=== PATIENT | male | born 1955 | race Caucasian/White ===

== ENCOUNTER 2018-09-18 17:48 | Inpatient (IN) | payer MEDICARE ==
[~2018-09-18] VITALS: Ht 162.6 cm; Wt 66.0 kg
[~2018-09-18 17:48] MED LIST: AMLODIPINE BESYL5 MG PO; CARAFATE1 GM PO; FLAGYL500 MG PO; LEVAQUIN500 MG PO; NEXIUM; PROTONIX40 MG PO; SENNA-S TABLET1 EA PO; SUCRALFATE1 GM PO; Z.0.LISINOPRIL20 MG PO
--- OUTSIDE RECORDS SUMMARY | 2018-09-18 17:52 | XMS REPORT | Continuity of Care Document ---
Author Author [facility] Interface Address Unknown Phone Unavailable Problems Problem Status Onset Date Classification Date Reported Comments Source 1 YEAR FOLLOW UP Active 03/22/2018 [facility] POST OP/ RENAL STONES Active 06/01/2017 [facility] NEUROGENIC BLADDER Active 04/04/2017 [facility] NEUORGENIC BLADDER Active 04/04/2017 [facility] F/U Active 11/29/2016 [facility] SCI FU Active 03/04/2016 [facility] PT STATED HAD SURG AND DOC SAID COME LUCERO Active 03/12/2014 [facility] NGB Active 02/06/[address] [facility] [address] EVAL Active 09/05/2000 [facility] KIDNEY STONES Active 11/24/1989 [facility] RENAL STONE Active 11/24/1977 [facility] ANNUAL F/U Active 11/24/1977 [facility] NEUROGENIC BLADDER/RENAL CALCULI Active 11/24/1977 [facility] NEUROGENIC BLADDER/RENAL STONES Active 11/24/1977 [facility] Neurogenic bladder Active Problem 02/23/2013 [facility] Neurogenic bladder Active Problem 03/25/2018 [facility] Neurogenic bowel Active Problem 03/25/2018 [facility] SCI - Spinal cord injury Active Problem 03/25/2018 [facility] Spasticity Active Problem 09/05/2017 [facility] Medications Medication Details Route Status Patient Instructions Ordering Provider Order Date Source Esomeprazole 40 MG Enteric Coated Capsule [Nexium] 40 mg=1 cap, PO, Daily, Workers [employer], # 90 cap, 3 Refill(s), Pharmacy: [facility] Active 04/04/2017 [facility] sucralfate 1 g oral tablet 1 gm=1 tab, PO, QID, # 120 tab, 0 Refill(s) Active 04/04/2017 [facility] Esomeprazole 40 MG Enteric Coated Capsule [Nexium] 40 mg=1 cap, PO, Daily, # 90 cap, 1 Refill(s), Pharmacy: [facility] No Longer Active 12/13/2016 [facility] Esomeprazole 40 MG Enteric Coated Capsule [Nexium] 40 mg=1 cap, PO, Daily, # 90 cap, 0 Refill(s), Pharmacy: [facility] Active 03/09/2016 [facility] Esomeprazole 40 MG Enteric Coated Capsule [Nexium] 40 mg=1 cap, PO, Daily, # 90 cap, 3 Refill(s) Active 03/11/2015 [facility] Esomeprazole 40 MG Enteric Coated Capsule [Nexium] 40 mg=1 cap, PO, Daily, # 30 cap, 0 Refill(s) Inactive 03/11/2015 [facility] Esomeprazole 40 MG Enteric Coated Capsule [Nexium] 40 mg=1 cap, PO, Daily, # 90 cap, 4 Refill(s) Active 03/12/2014 [facility] Ascorbic Acid / Biotin / Folic Acid / Niacin / pantothenate / pyridoxine / Riboflavin / Thiamine / Vitamin B 12 0 Refill(s) Active 03/12/2014 [facility] Allergies, Adverse Reactions, Alerts Substance Category Reaction Severity Reaction type Status Date Reported Comments Source Levaquin Assertion Drug allergy Active [facility] Immunizations Immunization Date Given Site Status Last Updated Comments Source Results Order Name Results Value Reference Range Date Interpretation Comments Source CHEM PANEL eGFR 100 mL/min/1.73m2 03/22/2018 Result Comment: The eGFR is calculated using the CKD-EPI formula. In most young, healthy individuals the eGFR will be >90 mL/min/1.73m2. The eGFR declines with age. An eGFR of 60-89 may be normal in some populations, particularly the elderly, for whom the CKD-EPI formula has not been extensively validated. Use of the eGFR is not recommended in the following populations: Individuals with unstable creatinine concentrations, including patients and those with serious co-morbid conditions. Patients with extremes in muscle mass or diet. The data above are obtained from the National Kidney Disease Education Program (NKDEP) which additionally recommends that when the eGFR is used in patients with extremes of body mass index for purposes of drug dosing, the eGFR should be multiplied by the estimated BMI. [facility] CHEM PANEL Creatinine Lvl 0.75 mg/dL 0.50 - 1.40 03/22/2018 [facility] Abdomen AP DX Abdomen AP DX 1 VIEW ABDOMEN INDICATION: Kidney stones. COMPARISON: 09/02/2017 KUB. Moderately large amount of colonic stool stable from August of last year. Very little rectal stool. Bowel gas pattern otherwise normal. Soft tissues normal. Chronic displaced subcapital fracture right hip stable from August of last year. Soft tissues normal. No radiopaque urinary stones identified however a large amount of stool projects over both kidneys. Lung bases clear. IMPRESSION: Moderately large amount of colonic stool. Chronic displaced right hip fracture.. END IMPRESSION SL: [id number] 03/15/2018 - - Read by: Sergei Bautista MD Dictated Date/time: 03/15/18 13:19 Electronically Signed by: Sergei Bautista MD 03/15/18 13:21 FINAL REPORT [facility] Retroperitoneal Complete US Retroperitoneal Complete US PROCEDURE: RENAL ULTRASOUND INDICATION: Kidneys stones. Neurogenic bladder. COMPARISON: 03/16/2017 renal ultrasound. Today's KUB. TECHNIQUE: Sonographic evaluation of the kidneys and urinary bladder was performed. FINDINGS: KIDNEYS: The right kidney measures 7.8 cm in length. Renal cortical scarring versus lobulated kidney seen. Mild hydronephrosis once again seen. 8 to 9 mm shadowing echogenic foci at the lower pole visualized. Mid pole anechoic avascular lesion measures 1.2 x 0.8 x 1 cm. The left kidney measures 10.7 cm in length. Pelviectasis present without overt hydronephrosis or cortical thinning. 6 to 7 mm shadowing echogenic focus of lower pole seen BLADDER: Bladder is not visualized. Small portion of the abdominal aorta is visualized. Aortic bifurcation into the common iliac arteries is obscured. Intrahepatic inferior vena cava is partially visualized. IMPRESSION: 1. Mild right hydronephrosis and left renal pelviectasis. 2. Bilateral nephrolithiasis. 3. Right renal cyst. SL: [id number] 03/15/2018 - - Read by: Ottoniel South MD Dictated Date/time: 03/15/18 13:06 Electronically Signed by: Ottoniel South MD 03/15/18 13:14 FINAL REPORT [facility] Abdomen AP DX Abdomen AP DX 1 VIEW ABDOMEN INDICATION: Renal stone. COMPARISON: 06/06/2017 KUB large amount of bowel content and bowel gas obscures both kidneys.. Large amount of bowel content and bowel gas obscures both kidneys. There is a 6 mm calcification projecting over the right kidney stable from prior exams. Bones otherwise intact. Lung bases clear.. IMPRESSION: Stable 6 mm right renal stone. Chronic right hip fracture. END IMPRESSION SL: [id number] 09/02/2017 - - Read by: Sergei Bautista MD Dictated Date/time: 09/02/17 12:52 Electronically Signed by: Sergei Bautista MD 09/02/17 12:54 FINAL REPORT [facility] Abdomen AP DX Abdomen AP DX Abdomen one view: HISTORY: Renal stones. FINDINGS: There is a moderate stool burden in the right side of the colon. There are 2 punctate calcific densities over the right kidney, largest 6 mm. Suture material is also noted in the right flank region. No definite left-sided kidney stone. 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 IMPRESSION: Right nephrolithiasis SL: [id number] 06/06/2017 - - Read by: Gerald Ashton MD Dictated Date/time: 06/06/17 11:08 Electronically Signed by: Gerald Ashton MD 06/06/17 11:10 FINAL REPORT [facility] Retroperitoneal Complete US Retroperitoneal Complete US PROCEDURE: RENAL ULTRASOUND INDICATION: Neurogenic bladder. Renal stones. COMPARISON: 03/22/2016 renal ultrasound. 03/15/2008 CT abdomen pelvis. TECHNIQUE: Sonographic evaluation of the kidneys and urinary bladder was performed. FINDINGS: KIDNEYS: The right kidney measures 7.8 cm in length. Mild hydronephrosis is present. Mild cortical thinning suspected. Cortical anechoic avascular cyst appears bilobed or septated measuring 1.4 x 1 x 1 cm. 1 cm shadowing echogenic focus there is seen in the mid to lower pole. 0.8 cm shadowing echogenic focus seen in the mid to upper pole. The left kidney measures 10.5 cm in length. Moderate pelviectasis or mild hydronephrosis is present. No significant cortical thinning. BLADDER: Not visualized. IMPRESSION: 1. Mild right hydronephrosis with mild cortical thinning. 2. Very mild left hydronephrosis. No significant cortical thinning. 3. Right nephrolithiasis. 4. Bilobed or septated right renal cyst. SL: [id number] 03/16/2017 - - Read by: Ottoniel South MD Dictated Date/time: 03/16/17 11:49 Electronically Signed by: Ottoniel South MD 03/16/17 12:47 FINAL REPORT [facility] Abdomen AP DX Abdomen AP DX PROCEDURE: Supine abdomen radiograph one view on 03/16/2017 at 1117 hours. INDICATION: Neurogenic bladder. Renal calculi COMPARISON: Renal ultrasound dated 03/16/2017. Abdomen radiograph dated 03/22/2016. CT abdomen and pelvis without contrast dated 03/15/2008. FINDINGS: Multiple calcifications overlie the upper and lower pole right kidney. Largest calcifications overlie the lower pole right kidney and measure up to 12 mm. Calcifications overlying the upper pole right kidney measure up to 6 mm. Smaller densities overlie the lower pole left kidney measuring up to 3 mm. Prominent bowel gas obscures visualization. Large volume fecal material in the colon. No bowel dilatation or transition. No solid organomegaly or masses. Chronic displaced right subcapital femoral neck fracture is again demonstrated. Bone density is decreased with mild to moderate degenerative changes in the spine, pelvis. IMPRESSION: 1. Bilateral nephrolithiasis, larger and more numerous on the right side. 2. Findings suggesting constipation. SL: [id number] 03/16/2017 - - Read by: Jimmy Bateman MD Dictated Date/time: 03/16/17 12:12 Electronically Signed by: Jimmy Bateman MD 03/16/17 12:20 FINAL REPORT [facility] Abdomen AP DX Abdomen AP DX EXAM: XR ABDOMEN 1 FRONTAL VIEW DATE: 03/22/2016 11:00 AM CDT INDICATION: NEUROGENIC BLADDER ADDITIONAL INFORMATION: None. COMPARISON: KU 01/30/2015 TECHNIQUE: Single frontal view of the abdomen. FINDINGS: Lines and tubes: Tube projects over the right upper quadrant. Scattered surgical clips projecting over the lower hemipelvis. Lower thorax: Unremarkable where visualized. Bowel: Nonobstructive bowel gas pattern. Moderately large stool burden. Solid organs: No abnormal mass or organomegaly seen. Calcifications: No abnormal calcifications found. Bones: Normal. IMPRESSION: 1. Nonobstructive bowel gas pattern. 2. Moderately large stool burden. 03/22/2016 - - Read by: Ottoniel Jimenes MD Dictated Date/time: 03/22/16 10:46 Electronically Signed by: Ottoniel Jimenes MD 03/22/16 10:48 FINAL REPORT [facility] Retroperitoneal Complete US Retroperitoneal Complete US EXAM: US RETROPERITONEUM DATE: 03/24/2016 11:00 AM CDT INDICATION: NEUROGENIC BLADDER ADDITIONAL INFORMATION: None. COMPARISON: Renal ultrasound 01/30/2015 TECHNIQUE: Multiplanar grayscale and color Doppler ultrasound of the kidneys and urinary bladder. FINDINGS: Right kidney: Hydronephrosis: None. Size: 7.8 cm. Atrophic. Echogenicity: Normal. Calculi: A subcentimeter 0.7 x 0.6 x 0.5 cm interpolar cyst. Cysts: A 0.8 x 0.4 x 0.7 cm and a 0.6 x 0.4 x 0.5 cm echogenic focus within the inferior pole Masses: None. Left kidney: Hydronephrosis: None. Size: 10.2 cm. Echogenicity: Normal. Calculi: None. Cysts: None. Masses: None. Status post urostomy. IMPRESSION: 1. Unchanged atrophic right kidney. 2. Persistent nonobstructive right inferior pole renal stones. 3. Right interpolar cyst. 4. No left renal stones. 03/22/2016 - - Read by: Ottoniel Jimenes MD Dictated Date/time: 03/22/16 11:09 Electronically Signed by: Ottoniel Jimenes MD 03/22/16 11:16 FINAL REPORT [facility] Abdomen AP DX Abdomen AP DX EXAM: XR ABDOMEN 1 VIEW DATE: 01/30/2015 at 1017 hours. INDICATION: Neurogenic bladder. ADDITIONAL INFORMATION: None. COMPARISON: None. TECHNIQUE: Two frontal radiographs provided for interpretation. DISCUSSION: Lower thorax is unremarkable where visualized. Tube overlies the left abdomen. The bowel gas pattern is nonobstructive. Moderate amount of stool is identified in the colon. No abnormal mass or organomegaly seen. No suspicious calcifications found. No worrisome skeletal abnormalities. IMPRESSION: 1. No abdominal abnormalities. Interpreted by Lex Sim MD. 01/30/2015 - - Read by: Lex Sim MD Dictated Date/time: 01/30/15 10:57 Electronically Signed by: Lex Sim MD 01/30/15 10:58 FINAL REPORT [facility] Retroperitoneal Complete US Retroperitoneal Complete US EXAM: US RENAL DATE: 01/30/2015 at 1010 hours. INDICATION: Neurogenic bladder. ADDITIONAL INFORMATION: Urostomy. COMPARISON: None. TECHNIQUE: Multiplanar grayscale and color Doppler ultrasound images of the kidneys and urinary bladder were obtained. FINDINGS: Right kidney is again noted to be atrophic. Right kidney is 7.7 x 3.1 x 3.0 cm and left is 10.3 x 5.1 x 4.5 cm. Subcentimeter right nonobstructing renal calculi are also noted, measuring 0.9 x 0.7 x 0.4 cm inferiorly and 0.6 x 0.5 x 0.4 cm in the mid right kidney. Mild bilateral pelviectasis is unchanged. The patient is status post urostomy. IMPRESSION: 1. Unchanged atrophy of the right kidney. 2. Unchanged right nonobstructing nephrolithiasis. 3. Unchanged mild bilateral pelviectasis. Interpreted by Lex Sim MD. 01/30/2015 - - Read by: Lex Sim MD Dictated Date/time: 01/30/15 10:45 Electronically Signed by: Lxe Sim MD 01/30/15 10:56 FINAL REPORT [facility] Retroperitoneal Complete US Retroperitoneal Complete US EXAM: RETROPERITONEAL ULTRASOUND DATE: January 10, 2014 INDICATION: Neurogenic bladder COMPARISON: February 15, 2013 DISCUSSION: Transverse and sagittal images of the kidneys were obtained Again noted is a small right kidney with renal parenchymal thinning and cortical scarring. The right kidney measures 7.4 x 3.5 x 4.0 cm. A 7 mm calculus is present in the inferior pole of the right kidney. A 5 x 8 mm calculus is present in the inferior pole of the right kidney with a smaller 3-4 mm calculus in the interpolar kidney. Pelviectasis is present. The left kidney measures 10.3 x 4.8 x 4.4 cm. The left kidney has a normal parenchymal appearance with pelviectasis noted. No echogenic calculus is seen in the left kidney. The bladder is not visualized. A urostomy tube is is present. No free fluid is seen in the pelvis. IMPRESSION: 1. Small right kidney with cortical scarring. 2. Approximately 3 right renal calculi are seen, largest at 8 mm. 3. Pelviectasis of the kidneys bilaterally. Dictated by staff: Dr. Lewis 01/10/2014 - - Read by: Suzie Lewis MD Dictated Date/time: 01/10/14 12:49 Electronically Signed by: Suzie Lewis MD 01/10/14 15:53 FINAL REPORT [facility] Abdomen AP view Abdomen AP view EXAM: XR ABDOMEN 1 VIEW DATE: 01/10/14. INDICATION: Neurogenic bladder. COMPARISON: February 15, 2013. TECHNIQUE: Two radiographs provided for interpretation. FINDINGS: Lower thorax is unremarkable where visualized. Gaseous distention of small large bowel loops is seen with a mild to moderate fecal burden.. Surgical sutures are noted in the right midabdomen.. At least 2 calcifications are seen overlying the right renal silhouette, largest measuring 7 - 8 mm.. No left renal calculus is seen. Fracture of the right femoral neck with subluxation of the distal aspect is unchanged. The bones are osteopenic.. IMPRESSION: 1. At least 2 subcentimeter right renal calculi are identified. Interpreted by Suzie Lewis MD. 01/10/2014 - - Read by: Suzie Lewis MD Dictated Date/time: 01/10/14 10:33 Electronically Signed by: Suzie Lewis MD 01/10/14 13:01 FINAL REPORT [facility] Vital Signs Vital Sign Value Date Comments Source Heart Rate 65 03/22/2018 [facility] Respitory Rate 18 03/22/2018 [facility] Systolic (mm Hg) 132 03/22/2018 [facility] Diastolic (mm Hg) 85 03/22/2018 [facility] Weight 45.455 03/22/2018 [facility] BMI Calculated 15.82 05/11/2017 [facility] Height 162.56 cm 05/11/2017 [facility] Weight 41.818 05/11/2017 [facility] Systolic (mm Hg) 123 05/11/2017 [facility] Diastolic (mm Hg) 83 05/11/2017 [facility] BMI Calculated 18.06 04/04/2017 [facility] Weight 47.727 04/04/2017 [facility] Height 162.56 cm 04/04/2017 [facility] Systolic (mm Hg) 135 04/04/2017 [facility] Diastolic (mm Hg) 85 04/04/2017 [facility] Heart Rate 111 04/04/2017 [facility] Respitory Rate 18 04/04/2017 [facility] Weight 46.364 04/04/2017 [facility] Height 162.56 cm 04/04/2017 [facility] BMI Calculated 17.55 04/04/2017 [facility] Respitory Rate 20 04/04/2017 [facility] Heart Rate 65 04/04/2017 [facility] Systolic (mm Hg) 135 04/04/2017 [facility] Diastolic (mm Hg) 87 04/04/2017 [facility] Systolic (mm Hg) 108 04/12/2016 [facility] Diastolic (mm Hg) 74 04/12/2016 [facility] Weight 46.364 04/12/2016 [facility] BMI Calculated 17.55 04/12/2016 [facility] Height 162.56 cm 04/12/2016 [facility] Heart Rate 102 04/12/2016 [facility] Respitory Rate 18 04/12/2016 [facility] Height 162.56 cm 03/29/2016 [facility] BMI Calculated 20.81 03/29/2016 [facility] Weight 55 03/29/2016 [facility] Respitory Rate 18 03/29/2016 [facility] Systolic (mm Hg) 75 03/29/2016 [facility] Diastolic (mm Hg) 45 03/29/2016 [facility] Heart Rate 90 03/29/2016 [facility] BMI Calculated 22.72 03/11/2015 [facility] Weight 54.545 03/11/2015 [facility] Height 154.94 cm 03/11/2015 [facility] Systolic (mm Hg) 132 03/11/2015 [facility] Diastolic (mm Hg) 76 03/11/2015 [facility] Respitory Rate 16 02/05/2015 [facility] Heart Rate 62 02/05/2015 [facility] Systolic (mm Hg) 100 02/05/2015 [facility] Diastolic (mm Hg) 68 02/05/2015 [facility] Respitory Rate 20 04/24/2014 [facility] Systolic (mm Hg) 113 04/24/2014 [facility] Diastolic (mm Hg) 86 04/24/2014 [facility] BMI Calculated 20.81 04/24/2014 [facility] Weight 55 04/24/2014 [facility] Height 162.56 cm 04/24/2014 [facility] Heart Rate 62 04/24/2014 [facility] Diastolic (mm Hg) 81 03/12/2014 [facility] Systolic (mm Hg) 114 03/12/2014 [facility] Respitory Rate 18 03/12/2014 [facility] Heart Rate 69 03/12/2014 [facility] Weight 55 03/12/2014 [facility] BMI Calculated 20.81 03/12/2014 [facility] Height 162.56 cm 03/12/2014 [facility] Heart Rate 57 02/06/2014 [facility] Respitory Rate 18 02/06/2014 [facility] Systolic (mm Hg) 147 02/06/2014 [facility] Diastolic (mm Hg) 87 02/06/2014 [facility] Weight 54.545 02/06/2014 [facility] BMI Calculated 20.64 02/06/2014 [facility] Height 162.56 cm 02/06/2014 [facility] Height 162.56 cm 02/21/2013 [facility] Weight 55 02/21/2013 [facility] Heart Rate 70 02/21/2013 [facility] Systolic (mm Hg) 127 02/21/2013 [facility] Respitory Rate 16 02/21/2013 [facility] Diastolic (mm Hg) 85 02/21/2013 [facility] Encounters Location Location Details Encounter Type Encounter Number Reason For Visit Attending Provider ADM Date DC Date Status Source Outpatient [id number] NEUROGENIC BLADDER ANGI ESPINO JR 02/21/2013 Active [facility] Outpatient [id number] Angi Espino Jr 01/10/2014 01/11/2014 [facility] Outpatient [id number] Angi Espino Jr 02/06/2014 02/07/2014 [facility] [place] [id number] [facility]/12[facility]2014 03/13/2014 [facility] [id number] Angi Espino Jr 04/16/2014 04/17/2014 [facility] Outpatient [id number] Angi Espino Jr 04/24/2014 04/25/2014 [facility] [place] Outpatient [id number] Angi Espino Jr 02/05/2015 02/06/2015 [facility] [id number] [facility] 03/11/2015 03/12/2015 [facility] Outpatient [id number] Angi Espino Jr 03/22/2016 03/23/2016 [facility] Outpatient [id number] Angi Espino Jr 03/29/2016 03/30/2016 [facility] Outpatient [id number] [facility] 04/12/2016 04/13/2016 [facility] Outpatient [id number] Angi Espino Jr 03/16/2017 03/17/2017 [facility] Outpatient [id number] Sy Frontera 04/04/2017 04/05/2017 [id number] Sy Frontera 05/11/2017 06/10/2017 [facility] Outpatient [id number] Angi Espino Jr 06/06/2017 06/07/2017 [facility] Outpatient [id number] Angi Espino Jr 09/02/2017 09/03/2017 [facility] Outpatient [id number] Angi Espino Jr 03/15/2018 03/16/2018 [facility] Outpatient [id number] Angi Espino Jr 03/22/2018 03/23/2018 [facility] Outpatient [id number] F/U DAYSI ZUNIGA Active [facility] Procedures Procedure Code Date Perfomer Comments Source Lithotripsy 602027433 03/07/2014 [facility] Lithotripsy of kidney [id number] 03/07/2014 [facility] Procedure <sup>1</sup> [id number] 1removal of stone [facility] Procedure<sup>1</sup> [id number] removal of stone [facility] Surgery<sup>2</sup> [id number] ileovesicostomy [facility]
--- OUTSIDE RECORDS SUMMARY | 2018-09-18 17:52 | XMS REPORT | Summary of Care ---
Author Organization Unknown Address Unknown Phone Unavailable Encounter [facility](ANISH) [id number] Date(s): 04/24/14 - 04/24/[address] [address] [facility] [phone] Discharge Disposition: Home Physician Attending: Dwayne Bernal MD Physician_Referring: Dwayne Bernal MD Reason for Visit PT STATED HAD SURG AND DOC SAID COME BACK 6-12 WKS Vital Signs Most recent to 1 oldest [Reference Range]: Height 162.56 cm (04/24/14 10:05 AM) Systolic Blood 113 mmHg Pressure [90-140 (04/24/14 10:05 AM) mmHg] Diastolic Blood 86 mmHg Pressure [60-90 (04/24/14 10:05 AM) mmHg] Respiratory Rate 20 BRMIN [14-20 BRMIN] (04/24/14 10:05 AM) Peripheral Pulse 62 bpm Rate [60-100 bpm] (04/24/14 10:05 AM) Weight 55 kg (04/24/14 10:05 AM) Body Mass Index 20.81 m2 (04/24/14 10:05 AM) Problem List Condition Effective Dates Status Health Status Informant Neurogenic Active bladder(Confirmed) Neurogenic Active bowel(Confirmed) SCI - Spinal cord Active injury(Confirmed) Spasticity(Confirmed Active ) Allergies, Adverse Reactions, Alerts Substance Reaction Severity Status Levaquin Active Medications No data available for this section Medications Administered During Your Visit No data available for this section Immunizations No data available for this section Procedures Procedure Type Body Site Date of Procedure Related Diagnosis Lithotripsy of kidney 03/07/14 12:00 AM Social History Social History Type Response Smoking Status Never smoker, Exposure to Tobacco Smoke None, Cigarette Smoking Last 365 Days No, Reg Smoking Cessation Counseling No
--- OUTSIDE RECORDS SUMMARY | 2018-09-18 17:52 | XMS REPORT | Summary of Care ---
Author Organization Unknown Address Unknown Phone Unavailable Encounter [facility](ANISH) [id number] Date(s): 03/12/14 - 03/12/[address] [address] [facility] [phone] Discharge Disposition: Home Physician Attending: Sy Esposito MD Physician_Referring: Bari Ryder MD Reason for Visit F/U Vital Signs Most recent to 1 oldest [Reference Range]: Height 162.56 cm (03/12/14 9:56 AM) Systolic Blood 114 mmHg Pressure [90-140 (03/12/14 9:56 AM) mmHg] Diastolic Blood 81 mmHg Pressure [60-90 (03/12/14 9:56 AM) mmHg] Respiratory Rate 18 BRMIN [14-20 BRMIN] (03/12/14 9:56 AM) Peripheral Pulse 69 bpm Rate [60-100 bpm] (03/12/14 9:56 AM) Weight 55 kg (03/12/14 9:56 AM) Body Mass Index 20.81 m2 (03/12/14 9:56 AM) Problem List Condition Effective Dates Status Health Status Informant Neurogenic Active bladder(Confirmed) Neurogenic Active bowel(Confirmed) SCI - Spinal cord Active injury(Confirmed) Spasticity(Confirmed Active ) Allergies, Adverse Reactions, Alerts Substance Reaction Severity Status Levaquin Active Medications multivitamin 0 Refill(s) Start Date: 03/12/14 Status: Ordered NexIUM 40 mg oral delayed release capsule 40 mg=1 cap, PO, Daily, # 90 cap, 4 Refill(s) Start Date: 03/12/14 Status: Ordered Medications Administered During Your Visit No data available for this section Immunizations No data available for this section Procedures Procedure Type Body Site Date of Procedure Related Diagnosis Lithotripsy 03/07/14 12:00 AM Social History Social History Type Response Smoking Status Never smoker, Exposure to Tobacco Smoke None, Cigarette Smoking Last 365 Days No, Reg Smoking Cessation Counseling No
--- OUTSIDE RECORDS SUMMARY | 2018-09-18 17:52 | XMS REPORT | Summary of Care ---
Author Organization Unknown Address Unknown Phone Unavailable Encounter HQ Tye_bryn(ANISH) [id number] Date(s): 02/06/14 - 02/06/[address] [address] [facility] Discharge Disposition: Home Physician Attending: Dwayne Bernal MD Physician_Referring: Dwayne Bernal MD Reason for Visit NEUROGENIC BLADDER Vital Signs Most recent to 1 oldest [Reference Range]: Height 162.56 cm (02/06/14 10:15 AM) Systolic Blood 147 mmHg Pressure [90-140 *HI* mmHg] (02/06/14 10:15 AM) Diastolic Blood 87 mmHg Pressure [60-90 (02/06/14 10:15 AM) mmHg] Respiratory Rate 18 BRMIN [14-20 BRMIN] (02/06/14 10:15 AM) Peripheral Pulse 57 bpm Rate [60-100 bpm] *LOW* (02/06/14 10:15 AM) Weight 54.545 kg (02/06/14 10:15 AM) Body Mass Index 20.64 m2 (02/06/14 10:15 AM) Problem List Condition Effective Dates Status Health Status Informant Neurogenic Active bladder(Confirmed) Neurogenic Active bowel(Confirmed) SCI - Spinal cord Active injury(Confirmed) Spasticity(Confirmed Active ) Allergies, Adverse Reactions, Alerts Substance Reaction Severity Status Levaquin Active Medications No data available for this section Medications Administered During Your Visit No data available for this section Immunizations No data available for this section Social History Social History Type Response Smoking Status Former smoker, Exposure to Tobacco Smoke None, Cigarette Smoking Last 365 Days No, Reg Smoking Cessation Counseling No
--- OUTSIDE RECORDS SUMMARY | 2018-09-18 17:52 | XMS REPORT | Summary of Care ---
Author Organization Unknown Address Unknown Phone Unavailable Encounter HQ Encntr_bryn(ANISH) [id number] Date(s): 01/10/14 - 01/10/14 [place] [id number] [place] [address] Discharge Disposition: Home Physician Attending: Dwayne Bernal MD Physician_Referring: Dwayne Bernal MD Reason for Visit NEUROGENIC BLADDER Problem List Condition Effective Dates Status Health [...]
--- OUTSIDE RECORDS SUMMARY | 2018-09-18 17:52 | XMS REPORT | Summary of Care ---
Author Organization Unknown Address Unknown Phone Unavailable Encounter HQ Tye_bryn(ANISH) [id number] Date(s): 04/16/14 - 04/16/14 [place] [id number] Discharge Disposition: Home Physician Attending: Dwayne Bernal MD Physician_Referring: Dwayne Bernal MD Reason for Visit RENAL STONE Problem List Condition Effective Dates Status Health [...]
--- OUTSIDE RECORDS SUMMARY | 2018-09-18 17:52 | XMS REPORT | CCD ---
Author Author Auto Generated Organization [facility] Address Unknown Phone Unavailable Care Team Providers Care Check Grader Name Role Phone Dwayne Florez Jr RP Allergies, Adverse Reactions, Alerts Substance Reaction Status Levaquin Active Problem List Condition Effective Dates Status Neurogenic bladder Active Vital Signs Most recent to oldest [Reference Range]: 1 Height 162.56 cm (02/21/2013 09:53:00) Systolic Blood Pressure [90-140 mmHg] 127 mmHg (02/21/2013 09:53:00) Diastolic Blood Pressure [60-90 mmHg] 85 mmHg (02/21/2013 09:53:00) Respiratory Rate [14-20 BRMIN] 16 BRMIN (02/21/2013 09:53:00) Peripheral Pulse Rate [60-100 bpm] 70 bpm (02/21/2013 09:53:00) Weight 55 kg (02/21/2013 09:53:00) Procedures Procedures Date Related Diagnosis Procedure 1 1removal of stone
--- OUTSIDE RECORDS SUMMARY | 2018-09-18 17:53 | XMS REPORT | Summary of Care ---
Author Author [facility] Address Unknown Phone Unavailable Encounter HQ Jassi(ANISH) [id number] Date(s): 03/22/16 - 03/22/16 [facility] [address] [place], [place] [address] Discharge Disposition: Home or Self Care Attending Physician: Dwayne Bernal MD Referring Physician: Sy Esposito MD Vital Signs No data available for this section Problem List Condition Effective Dates Status Health Status Informant Neurogenic Active bladder(Confirmed) Neurogenic Active bowel(Confirmed) SCI - Spinal cord Active injury(Confirmed) Spasticity(Confirmed Active ) Allergies, Adverse Reactions, Alerts Substance Reaction Severity Status Levaquin Active Medications No data available for this section Results No data available for this section Immunizations No data available for this section Procedures Procedure Date Related Diagnosis Body Site Lithotripsy 03/07/14 Lithotripsy of kidney 03/07/14 Procedure1 1removal of stone Social History Social History Type Response Smoking Status Never smoker; Exposure to Tobacco Smoke None; Cigarette Smoking Last 365 Days No; Reg Smoking Cessation Counseling No Assessment and Plan No data available for this section
--- OUTSIDE RECORDS SUMMARY | 2018-09-18 17:53 | XMS REPORT | Summary of Care ---
Author Author [facility] Address Unknown Phone Unavailable Encounter CATIE Keene(ANISH) [id number] Date(s): 03/29/16 - 03/29/16 [place] [address] [place], [place] [address] Discharge Disposition: Home or Self Care Attending Physician: Dwayne Bernal MD Referring Physician: Dwayne Bernal MD Vital Signs Most recent to 1 oldest [Reference Range]: Height 162.56 cm (03/29/16 10:08 AM) Blood Pressure 75/45 mmHg [90-140/60-90 mmHg] *LOW* (03/29/16 10:08 AM) Respiratory Rate 18 BRMIN [14-20 BRMIN] (03/29/16 10:08 AM) Peripheral Pulse 90 bpm Rate [60-100 bpm] (03/29/16 10:08 AM) Weight 55 kg (03/29/16 10:08 AM) Body Mass Index 20.81 m2 (03/29/16 10:08 AM) Problem List Condition Effective Dates Status Health Status Informant Neurogenic Active bladder(Confirmed) Neurogenic Active bowel(Confirmed) SCI - Spinal cord Active injury(Confirmed) Spasticity(Confirmed Active ) Allergies, Adverse Reactions, Alerts Substance Reaction Severity Status Levaquin Active Medications No Known Medications Results No data available for this section [...]
--- OUTSIDE RECORDS SUMMARY | 2018-09-18 17:53 | XMS REPORT | Summary of Care ---
Author Author [facility] Address Unknown Phone Unavailable Encounter CATIE Keene(ANISH) [id number] Date(s): 03/22/18 - 03/22/18 [place] [address] [place], [place] [address] Discharge Disposition: Home or Self Care Attending Physician: Dwayne Bernal MD Referring Physician: Dwayne Bernal MD Vital Signs Most recent to 1 oldest [Reference Range]: Blood Pressure 132/85 mmHg [90-140/60-90 mmHg] (03/22/18 10:34 AM) Respiratory Rate 18 BRMIN [14-20 BRMIN] (03/22/18 10:34 AM) Peripheral Pulse 65 bpm Rate [60-100 bpm] (03/22/18 10:34 AM) Weight 45.455 kg (03/22/18 10:34 AM) Problem List Condition Effective Dates Status Health Status Informant Neurogenic Active bladder(Confirmed) Neurogenic Active bowel(Confirmed) SCI - Spinal cord Active injury(Confirmed) Allergies, Adverse Reactions, Alerts Substance Reaction Severity Status Levaquin Active Medications No Known Medications Results CHEM PANEL Most recent to 1 oldest [Reference Range]: Creatinine Lvl 0.75 mg/dL [0.50-1.40 mg/dL] (03/22/18 12:10 PM) eGFR 100 mL/min/1.73m2 1 *NA* (03/22/18 12:10 PM) 1Result Comment: The eGFR is calculated using the [...] from the National Kidney Disease Education Program ( NKDEP) which additionally recommends that when the eGFR is used in patients with extremes of body mass index for purposes of drug dosing, the eGFR should be mul tiplied by the estimated BMI. Immunizations No data available for this section Procedures Procedure Date Related Diagnosis Body Site Status Lithotripsy 03/07/14 Completed Lithotripsy of kidney 03/07/14 Completed Procedure1 Completed Surgery2 Completed 1removal of stone 2ileovesicostomy Social History Social History Type Response Smoking Status Never smoker; Ready to change: No; Concerns about tobacco use in household: No; Exposure to Tobacco Smoke None; Cigarette Smoking Last 365 Days No; Reg Smoking Cessation Counseling No entered on: 03/22/18 Assessment and Plan No data available for this section
--- OUTSIDE RECORDS SUMMARY | 2018-09-18 17:53 | XMS REPORT | Summary of Care ---
Author Author [facility] Address Unknown Phone Unavailable Encounter CATIE Keene(ANISH) [id number] Date(s): 06/06/17 - 06/06/17 [facility] [address] [place], [place] [address] Discharge Disposition: Home or Self Care Attending Physician: Dwayne Bernal MD Referring Physician: Dwayne Bernal MD Vital Signs No data available for [...] Lithotripsy 03/07/14 Lithotripsy of kidney 03/07/14 Procedure1 Surgery2 1removal of stone 2ileovesicostomy Social History Social History Type Response Smoking Status Never smoker; Ready to change: No; Concerns about tobacco use in household: No; Exposure to Tobacco Smoke None; Cigarette Smoking Last 365 Days No; Reg Smoking Cessation Counseling No Assessment and Plan No data available for this section
--- OUTSIDE RECORDS SUMMARY | 2018-09-18 17:53 | XMS REPORT | Summary of Care ---
Author Organization Unknown Address Unknown Phone Unavailable Encounter HQ Jassi(ANISH) [id number] Date(s): 03/11/15 - 03/11/[address] Discharge Disposition: Home Physician Attending: Sy Esposito MD Physician_Referring: Sy Esposito MD Vital Signs Most recent to 1 oldest [Reference Range]: Height 154.94 cm (03/11/15 10:17 AM) Blood Pressure 132/76 mmHg [90-140/60-90 mmHg] (03/11/15 10:17 AM) Weight 54.545 kg (03/11/15 10:17 AM) Body Mass Index 22.72 m2 (03/11/15 10:17 AM) Problem List Condition Effective Dates Status Health Status Informant Neurogenic Active bladder(Confirmed) Neurogenic Active bowel(Confirmed) SCI - Spinal cord Active injury(Confirmed) Spasticity(Confirmed Active ) Allergies, Adverse Reactions, Alerts Substance Reaction Severity Status Levaquin Active Medications NexIUM 40 mg oral delayed release capsule 40 mg=1 cap, PO, Daily, # 30 cap, 0 Refill(s) Start Date: 03/11/15 Stop Date: 03/11/15 Status: Discontinued NexIUM 40 mg oral delayed release capsule 40 mg=1 cap, PO, Daily, # 90 cap, 3 Refill(s) Start Date: 03/11/15 Status: Ordered Results No data available for this section [...]
--- OUTSIDE RECORDS SUMMARY | 2018-09-18 17:53 | XMS REPORT | Summary of Care ---
Author Author [facility] Address Unknown Phone Unavailable Encounter HQ Jassi(ANISH) [id number] Date(s): 09/02/17 - 09/02/17 [place] [address] [place], [place] [address] Discharge Disposition: Home or Self [...]
--- OUTSIDE RECORDS SUMMARY | 2018-09-18 17:53 | XMS REPORT | Summary of Care ---
Author Author [facility] Address Unknown Phone Unavailable Encounter HQ Jassi(FIN) [id number] Date(s): 03/15/18 - 03/15/18 [facility] [address] [place], [place] [address] Discharge Disposition: Home or Self Care Attending [...] Reg Smoking Cessation Counseling No entered on: 04/04/17 Assessment and Plan No data available for this section
--- OUTSIDE RECORDS SUMMARY | 2018-09-18 17:53 | XMS REPORT | Summary of Care ---
Author Author [facility] Address Unknown Phone Unavailable Encounter CATIE Keene(ANISH) [id number] Date(s): 03/16/17 - 03/16/17 [facility] [address] [place], [place] [address] [phone] Discharge Disposition: Home or Self Care Attending Physician: wDayne Bernal MD Referring Physician: Dwayne Bernal MD [...]
--- OUTSIDE RECORDS SUMMARY | 2018-09-18 17:53 | XMS REPORT | Summary of Care ---
Author Organization Unknown Address Unknown Phone Unavailable Encounter HQ Jassi(ANISH) [id number] Date(s): 02/05/15 - 02/05/[id number] [place] [address] Discharge Disposition: Home Physician Attending: Dwayne Bernal MD Physician_Referring: Dwayne Bernal MD Vital Signs Most recent to 1 oldest [Reference Range]: Blood Pressure 100/68 mmHg [90-140/60-90 mmHg] (02/05/15 11:27 AM) Respiratory Rate 16 BRMIN [14-20 BRMIN] (02/05/15 11:27 AM) Peripheral Pulse 62 bpm Rate [60-100 bpm] (02/05/15 11:27 AM) Problem List Condition Effective Dates Status [...]
--- OUTSIDE RECORDS SUMMARY | 2018-09-18 17:53 | XMS REPORT | Summary of Care ---
Author Author [facility] Address Unknown Phone Unavailable Encounter CATIE Keene(ANISH) [id number] Date(s): 04/12/16 - 04/12/16 [facility] [address] [place], [place] [address] Discharge Disposition: Home or Self Care Attending Physician: Sy Esposito MD Referring Physician: Sy Esposito MD Vital Signs Most recent to 1 oldest [Reference Range]: Height 162.56 cm (04/12/16 11:18 AM) Blood Pressure 108/74 mmHg [90-140/60-90 mmHg] (04/12/16 11:18 AM) Respiratory Rate 18 BRMIN [14-20 BRMIN] (04/12/16 11:18 AM) Peripheral Pulse 102 bpm Rate [60-100 bpm] *HI* (04/12/16 11:18 AM) Weight 46.364 kg (04/12/16 11:18 AM) Body Mass Index 17.55 m2 (04/12/16 11:18 AM) Problem List Condition Effective Dates Status Health Status Informant Neurogenic Active bladder(Confirmed) Neurogenic Active bowel(Confirmed) SCI - Spinal cord Active injury(Confirmed) Spasticity(Confirmed Active ) Allergies, Adverse Reactions, Alerts Substance Reaction Severity Status Levaquin Active Medications NexIUM 40 mg oral delayed release capsule 40 mg=1 cap, PO, Daily, # 90 cap, 0 Refill(s), Pharmacy: [facility] Start Date: 03/09/16 Status: Ordered Results No data available for [...]
--- OUTSIDE RECORDS SUMMARY | 2018-09-18 17:53 | XMS REPORT | Summary of Care ---
Author Author [facility] Address Unknown Phone Unavailable Encounter CATIE Keene(ANISH) [id number] Date(s): 05/11/17 - 06/09/17 [facility] [address] [place], [place] [address] Discharge Disposition: Home or Self Care Attending Physician: Sy Esposito MD Referring Physician: Sy Esposito MD Vital Signs Most recent to 1 oldest [Reference Range]: Height 162.56 cm (05/11/17 9:51 AM) Blood Pressure 123/83 mmHg [90-140/60-90 mmHg] (05/11/17 9:51 AM) Weight 41.818 kg (05/11/17 9:51 AM) Body Mass Index 15.82 m2 (05/11/17 9:51 AM) Problem List Condition Effective Dates Status [...]
--- OUTSIDE RECORDS SUMMARY | 2018-09-18 17:53 | XMS REPORT ---
Author Author [facility] Address Unknown Phone Unavailable Care Team Providers Care Supervisor Prop Making Name Role Phone UNKNOWN, REFFERING PP Unavailable Radha ESPINO JR Unavailable Unavailable Problems This patient has no known problems. Allergies, Adverse Reactions, Alerts This patient has no known allergies or adverse reactions. Medications This patient has no known medications. Results Test Description Test Time Test Comments Text Results Atomic Results Result Comments Culture, Urine 2017-04-17 08:19:00 Specimen: UrineCollected: 04/14/2017 13:30 Status: Final Last Updated: 04/17/2017 07:32 Isolate (Final) (Final) 04/15/17 >100,000 CFU/mL Serratia marcescens Amikacin <=16 Susceptible Ampicillin <=8 Resistant Ampicillin/Sulb <=8/4 Resistant Cefazolin >16 Resistant Cefepime <=4 Susceptible Cefotaxime <=2 Susceptible Ceftazidime <=1 Susceptible Ceftriaxone <=1 Susceptible Cefuroxime >16 Resistant Ciprofloxacin <=1 Susceptible Gentamicin <=4 Susceptible Imipenem <=1 Susceptible Levofloxacin <=2 Susceptible Nitrofurantoin >64 Resistant Piperacillin/Tazo <=16 Susceptible Tobramycin <=4 Susceptible Trimethoprim/Sulfa <=2/38 Susceptible Isolate (Final) (Final) 04/15/17 >100,000 CFU/mL Group D Enterococcus Isolate Group D Enterococcus ANAND (mcg/ml) Ampicillin (AM) <=2 Susceptible Ciprofloxacin (CP) >2 Resistant Gentamicin Syn (HLG) >500 Resistant Levofloxacin (LEV) >4 Resistant Linezolid (LNZ) 1 Susceptible Nitrofurantoin (FT) <=32 Susceptible Penicillin (P) 4 Susceptible Streptomycin Syn (HLS)>1000 Resistant Tetracycline (TE) >8 Resistant Vancomycin (VA) 2 Susceptible Basic Metabolic Panel 2017-04-14 16:10:00 Sodium (test code=NA) 132 mmol/L 135-145 Potassium (test code=K) 4.5 mmol/L 3.5-5.1 Chloride (test code=CL) 95 mmol/L 98-105 Carbon Dioxide (test code=CO2) 25 mmol/L 22-29 Glucose (test code=GLU) 78 mg/dL 70-115 Blood Urea Nitrogen (test code=BUN) 16 mg/dL 6-20 Creatinine (test code=CREAT) 0.6 mg/dL 0.7-1.2 Calcium (test code=CA) 9.0 mg/dL 8.3-10.5 BUN/Creatinine Ratio (test code=BCRATIO) 26.7 Anion Gap (test code=AGAP) 12 mmol/L 7-16 Estimated GFR (test code=GFR) >60 mL/min/1.73m2 eGFR (estimated Glomerular Filtration Rate) is an estimated value,calculated from the patient's serum creatinine using the MDRD equation.It is NOT the patient's actual GFR. The eGFR provides a more clinicallyuseful measure of kidney disease than serum creatinine alone.This calculation takes sex and race into account, if the informationis provided. If the race is not provided, and the patient isAfrican-Ecuadorean, multiply by 1.212. If sex is not provided, and thepatient is female, multiply by 0.742. Results for patients <18 years ofage have not been validated by the MDRD study and should be interpretedwith caution.eGFR Result Interpretation:eGFR > or=60 is in the Normal RangeeGFR < 60 may mean kidney diseaseeGFR < 15 may mean kidney failureRanges recommended by the National Kidney Foundat ion,http://nkdep.nih.gov Urinalysis [id number] 15:17:00* Test Item Value Reference Range Comments Color (test code=COLOR) Straw Yellow,Straw,Pl yellow Clarity (test code=CLAR) Clear Clear Specific [place] (test code=SPGR) 1.004 1.001-1.035 pH (test code=PH) 7.0 5.0-9.0 Ketone (test code=KET) Negative mg/dL Negative Glucose (test code=GLUCUR) Negative mg/dL Negative Protein (test code=PROT) Negative mg/dL Negative Bilirubin (test code=BILI) Negative mg/dL Negative Occult Blood (test code=UDOB) Trace Negative Urobilinogen (test code=UROB) 0.2 mg/dL 0.2-1.0 Nitrite (test code=NIT) Negative Negative Leuk Esterase (test code=LEUK) Large Negative Micros Exam (test code=MEXAM) Indicated Epithelial Cells (test code=EPI) 6-9 /LPF 0-30 WBC, Urine (test code=UWBC) 3-5 /HPF 0-5 RBC, Urine (test code=URBC) 0-3 /HPF 0-5 Bacteria (test code=BACT) Many /HPF CBC with [id number] 14:25:00* Test Item Value Reference Range Comments WBC (test code=WBC) 7.4 K/cumm 4.4-10.5 RBC (test code=RBC) 3.75 M/cumm 4.10-5.70 Hemoglobin (test code=HGB) 11.4 gm/dL 13.4-17.4 Hematocrit (test code=HCT) 34.9 % 38.7-52.0 MCV (test code=MCV) 93.0 fL 80-100 MCH (test code=MCH) 30.4 pg 27.0-32.5 MCHC (test code=MCHC) 32.7 g/dL 32.0-37.5 RDW (test code=RDW) 14.1 % 11.5-14.5 Platelet Count (test code=PLTCT) 145 K/cumm 140-440 MPV (test code=MPV) 9.4 fL Diff Method (test code=DIFFM) Auto Neutrophil (test code=NEUT) 81.3 % 36-70 Lymphocyte (test code=LYMPH) 13.3 % 12-44 Monocyte (test code=MONO) 4.5 % 0-11 Eosinophil (test code=EOS) 0.6 % 0-7 Basophil (test code=BASO) 0.3 % 0-2 Neutro Abs (test code=ANEUT) 6.0 K/cumm 1.6-7.4 Lymph Abs (test code=ALYMPH) 1.0 K/cumm 0.5-4.6 [place] Abs (test code=AMONO) 0.3 K/cumm 0.0-1.2 Eos Abs (test code=AEOS) 0.04 K/cumm 0.00-0.74 Baso Abs (test code=ABASO) 0.0 K/cumm 0.00-0.21
[2018-09-18 19:12] LABS: BASOPHILS % 0.1 % (0.0-1.0); EOSINOPHILS % 0.3 % (0.0-6.0); HEMATOCRIT 31.7 % (38.2-49.6); HEMOGLOBIN 11.1 g/dL (14.0-18.0); LYMPHOCYTES % 15.4 % (18.0-39.1); MEAN CORPUSCULAR HEMOGLOBIN 32.6 pg (28-32); MONOCYTES # (AUTO) 0.6 (0.2-0.8); MONOCYTES % 8.6 % (4.4-11.3); NEUTROPHILS # (AUTO) 5.1 (2.1-6.9); NEUTROPHILS % 75.3 % (38.7-80.0); PLATELET COUNT 160 x10e3/uL (140-360); RED BLOOD COUNT 3.41 x10e6/uL (4.3-5.7); RED CELL DISTRIBUTION WIDTH 12.1 % (11.7-14.4)
[2018-09-18 19:30] LABS: ALANINE AMINOTRANSFERASE 21 IU/L (0-55); ALBUMIN 4.1 g/dL (3.5-5.0); ALKALINE PHOSPHATASE 68 IU/L (40-150); ANION GAP 12.1 mmol/L (8-16); BLOOD UREA NITROGEN 12 mg/dL (7-26); BUN/CREATININE RATIO 17 (6-25); CALCIUM 8.9 mg/dL (8.4-10.2); CARBON DIOXIDE 28 mmol/L (22-29); CHLORIDE 91 mmol/L (98-107); EST GLOMERULAR FILTRATION RATE > 60 ML/MIN (60-); GLUCOSE 80 mg/dL (74-118); POTASSIUM 4.1 mmol/L (3.5-5.1); SODIUM 127 mmol/L (136-145)
[2018-09-18] MEDS ORDERED: ZOLPIDEM TARTRATE 5 MG TAB PO PRN (20:15)
[2018-09-18] MEDS ORDERED: MORPHINE SULFATE 2 MG/ML SYR 1ML IV PRN (20:15)
[2018-09-18] MEDS ORDERED: CLONIDINE HCL 0.1 MG TAB PO PRN (20:15)
[2018-09-18] MEDS ORDERED: ONDANSETRON HCL INJ 2MG/ML 2ML 2 MG/ML VIAL IV PRN (20:15)
[2018-09-18] MEDS ORDERED: DIPHENHYDRAMINE HCL INJ 50 MG/ML VIAL IV PRN (20:15)
--- OUTSIDE RECORDS SUMMARY | 2018-09-18 20:36 | XMS REPORT | Continuity of Care Document ---
Author Author [facility] Address Unknown Phone Unavailable Problems Problem [...] displaced right hip fracture.. END IMPRESSION SL: [id number] 03/15/2018 - - Read by: Sergei Bautista [...] Bilateral nephrolithiasis. 3. Right renal cyst. SL: [id number] 03/15/2018 - - Read by: Ottoniel South [...] Chronic right hip fracture. END IMPRESSION SL: [id number] 09/02/2017 - - Read by: Sergei Bautista [...] fracture again noted. IMPRESSION: Right nephrolithiasis SL: [id number] 06/06/2017 - - Read by: Gerald Ashton [...] Bilobed or septated right renal cyst. SL: [id number] 03/16/2017 - - Read by: Ottoniel South [...] right side. 2. Findings suggesting constipation. SL: [id number] 03/16/2017 - - Read by: Jimmy Bateman [...] Dictated Date/time: 01/30/15 10:45 Electronically Signed by: Lex Sim MD 01/30/15 10:56 FINAL REPORT [facility] [...] ADM Date DC Date Status Source Outpatient [id number] NEUROGENIC BLADDER ANGI ESPINO JR 02/21/2013 Active [facility] Outpatient [id number] Angi Espino Jr 01/10/2014 01/11/2014 [facility] Outpatient [id number] Angi Espino Jr 02/06/2014 02/07/2014 [id number] [facility] 03/13/2014 [facility] [id number] Angi Espino Jr 04/16/2014 04/17/2014 [facility] Outpatient [id number] Angi Espino Jr 04/24/2014 04/25/2014 [facility] Outpatient [id number] Anig Espino Jr 02/05/2015 02/06/2015 [facility] [id number] [facility]/11/2015 03/12/2015 [facility] Outpatient [id number] Angi Espino Jr 03/22/2016 03/23/2016 [facility] Outpatient [id number] Angi Espino Jr 03/29/2016 03/30/2016 [facility] [id number] [facility] 04/12/2016 04/13/2016 [facility] Outpatient [id number] Angi Espino Jr 03/16/2017 03/17/2017 [facility] Outpatient [id number] [place] 04/04/2017 04/05/[address] [facility] [id number] [place] 05/11/2017 06/10/2017 [facility] Outpatient [id number] Angi Espino Jr 06/06/2017 06/07/2017 [facility] Outpatient [id number] Angi Espino Jr 09/02/2017 09/03/2017 [facility] Outpatient [id number] Angi Espino Jr 03/15/2018 03/16/2018 [facility] Outpatient [id number] Angi Espino Jr 03/22/2018 03/23/2018 [facility] Outpatient [id number] F/U DAYSI ZUNIGA Active [facility] Procedures Procedure Code Date Perfomer Comments Source Lithotripsy of kidney [id number] 03/07/2014 [facility] Lithotripsy [id number] 03/07/2014 [facility] Procedure <sup>1</sup> [id number] 1removal of stone [facility] Procedure<sup>1</sup> [id number] removal of stone [facility] Surgery<sup>2</sup> [id number] ileovesicostomy [facility]
[2018-09-18] MEDS ORDERED: ENOXAPARIN 30 MG/0.3 ML SYR SC ONE (20:45)
[2018-09-18] MEDS ORDERED: VANCOMYCIN 1GM/NS 250 ML 250 ML IV ONE (20:45)
--- NOTE | 2018-09-18 21:01 | NUR ---
REPORT ATTEMPTED TO CALL TO FLOOR
[2018-09-18] MEDS: PIPER-TAZ 3.375 GM 50 ML IV SCH (21:28)
[2018-09-18] MEDS ORDERED: SODIUM CHLORIDE 0.9% 250ML 250 ML ONE (22:24)
[2018-09-18 22:30] VITALS: BP 90/55
--- NOTE | 2018-09-18 22:45 | NUR ---
PATIENT ASKED FOR PAIN MED PRN, BUT HIS BLOOD PRESSURE AT THIS TIME IS 90/55. HOLD THE PAIN MED, WILL RE CHECK BP AGAIN LATER. PATIENT WANTS TO TAKE THE INSOMNIA MED INSTEAD.
[2018-09-18 23:05] VITALS: BP 90/55
--- NOTE | 2018-09-18 23:16 | NUR ---
PATIENT CAME FROM ER AWAKE ALERT ORIENTED, HE IS PARTIAL QUADRIPLEGIC, HE CAN MOVE BILATERAL UPPER EXTREMITIES. PATIENT HAS UROSTOMY TO LEFT LOWER QUADRANT ABDOMEN, DRAINING CLEAR PALE URINE. HE CAME WITH LEFT LEG SWELLING AND REDNESS, ALSO BLACK BRUISE TO LEFT HEEL. ALSO CRACKED SKIN TO MEDIAL SACRUM AREA, NO DRAINAGE AND LOOK CLEAN, AND RIGHT ELBOW SKIN TEAR, NO DRAINAGE. VITALS CHECKED, IV ANTIBIOTIC IS RUNNING, WILL CONTINUE TO MONITOR.
[2018-09-19] VITALS (8 sets, daily range): BP systolic 93–124; BP diastolic 51–68
[2018-09-19] MEDS: MORPHINE SULFATE INJ 4 MG/ML INJ 1ML IV PRN ×2 (00:46→22:22)
[2018-09-19] MEDS: PIPER-TAZ 3.375 GM 50 ML IV SCH ×4 (03:45→21:38)
[2018-09-19] MEDS: VANCOMYCIN 1GM/NS 250 ML 250 ML IV SCH ×2 (04:39→15:56)
[2018-09-19 05:36] LABS: BASOPHILS % 0.5 % (0.0-1.0); EOSINOPHILS # (AUTO) 0.1 (0.0-0.4); EOSINOPHILS % 2.3 % (0.0-6.0); HEMATOCRIT 27.7 % (38.2-49.6); HEMOGLOBIN 9.7 g/dL (14.0-18.0); LYMPHOCYTES # (AUTO) 0.7 (1.0-3.2); LYMPHOCYTES % 15.6 % (18.0-39.1); MEAN CORPUSCULAR HEMOGLOBIN 32.3 pg (28-32); MEAN CORPUSCULAR VOLUME 92.3 fL (81-99); MONOCYTES # (AUTO) 0.6 (0.2-0.8); MONOCYTES % 13.3 % (4.4-11.3); NEUTROPHILS # (AUTO) 2.9 (2.1-6.9); NEUTROPHILS % 68.1 % (38.7-80.0); PLATELET COUNT 148 x10e3/uL (140-360); RED CELL DISTRIBUTION WIDTH 12.2 % (11.7-14.4)
[2018-09-19 06:09] LABS: ANION GAP 10.2 mmol/L (8-16); BLOOD UREA NITROGEN 11 mg/dL (7-26); BUN/CREATININE RATIO 16 (6-25); CALCIUM 8.4 mg/dL (8.4-10.2); CARBON DIOXIDE 27 mmol/L (22-29); CHLORIDE 97 mmol/L (98-107); CREATININE, SERUM 0.68 mg/dL (0.72-1.25); EST GLOMERULAR FILTRATION RATE > 60 ML/MIN (60-); GLUCOSE 84 mg/dL (74-118); POTASSIUM 4.2 mmol/L (3.5-5.1); SODIUM 130 mmol/L (136-145)
[2018-09-19] MEDS: FAMOTIDINE 20 MG TAB PO SCH ×2 (08:15→17:05)
--- NOTE | 2018-09-19 08:19 | NUR ---
PATIENT RESTING IN BED, DENIES ANY PAIN, NO DISTRESS NOTED, ENCOURAGED HIM TO USE CALL LIGHT FOR ANY ASSISTANCE
--- NOTE | 2018-09-19 09:15 | NUR ---
SOCIAL WORK INITIAL ASSESSMENT [employer] Prevention Specialist to bedside to discuss plan of care with patient/family. CM/SW role and care transitions discussed. Anticipated discharge plan discussed along with duration of care. CM/SW discussed patients right to make decisions in care. CM/SW work hours given. Patient lives: IN HOUSE WITH HIS BROTHER ANGI Admit/Transfer: VIA ED FROM HOME POA/Emergency contact: ANGI [phone] Current/Previous Home Health: [facility] PCP/Follow-up Care: LETICIA MARIN Current/Previous DME: WHEELCHAIR SLIDING [employer]QUIPMENT -PT IS QUADRIPLEGIC Other Services: [facility] [employer] Employment Status: DISABLED Areas of Concerns: NONE Referral Needs: NONE Education Needs: NONE IMM/STROUD given and signed (if applicable): STROUD UNABLE TO SIGN DUE TO UNABLE TO MOVE ARMS, EDUCATED AND LEFT COPY IN ROOM. Goal for discharge: RETURN HOME BASELINE CM/SW left business card at the bedside with contact information. Name and number was also written on the patients whiteboard. Patient verbalized understanding of discussion. CM will follow-up with ongoing discharge and transition of care needs.
--- NOTE | 2018-09-19 12:10 | NUR ---
Rechecked BP Manually 95/50, patient up in bed, speaking to the nurse, not in any distress, denies any chest pain, Paged Dr Vega, new orders recvd to give IV fluids D5 NS 120CC/HR.
[2018-09-19] MEDS: DEXTROSE 5%/0.9% SOD CHL 1,000 ML IV SCH ×2 (12:25→22:22)
--- NOTE | 2018-09-19 14:45 | NUR ---
Visit made by the Spiritual Care Department Pastoral Visitor, Viktoria Calixto. Pt sleeping soundly and no family present. Pastoral Visitor left a card describing availability of director digital catalogue and instructions on how to contact a director digital catalogue. LINNEA LAM Clinic Director Spiritual Care Department O: [phone] Pager: [phone] ([phone] number calling from)
--- NOTE | 2018-09-19 15:58 | NUR ---
WOUND CARE CONSULTATION - INITIAL EVALUATION -Patient admitted from Home to ER for S/P fall from wheel chair with Cellulitis to Left Lower Leg and Foot. He has been a quadriplegic since 1977. Cardiac diet noted, He is bedfast requiring total assistance. WBC4.29 HGB9.7 HCT27.7 NEUT%68.1 GLU84 ALB4.1 Blood Cultures Pending -Wound Care consulted for Left Foot Evaluation of purple area. - Patient Visit: -VSS, Afebrile at time of visit. -Alternating Pressure Mattress in Place and patient on left side position. - Connor Score 12 w/ Strict PUP protocol in place - Patient identified reason for being in hospital related to left foot/ ankle injury from falling off of wheel chair while at home. - LLE [id number]. Redness with bruising at mcmanus and +3 Edema. Hot to touch compared to Right Leg. No open skin. to LLE. Strong Pedal Pulses B. - Left Foot - Heel and Plantar Deep Bruising at various healing stages. No Open Skin noted to Left Foot. - Mid Gluteal Fold - 2x0.2x0.1 cm - Shear Friction Wound - Stage II Pressure Ulcer Present On admission. - Patient states he got it from transferring from bed to wheel chair and sliding across. Area stable, no drainage, no swelling, denies itching or pain. States to be treating it with over the counter triple antibiotic ointment. IMPRESSION: -LLE and Foot - Bruising with present Diagnosis of Cellulitis. (13x14 cm) -Mid Gluteal Fold - Shear Friction Wound - Stage II pressure ulcer.(2x0.2x0.1cm) RECOMMENDATION: -LLE and Foot - Bruising with present Diagnosis of Cellulitis - Venelex and Leave Open To Air Daily -Mid Gluteal Fold - Shear Friction Wound - Stage II pressure ulcer - Apply Bactroban Ointment twice a day and PRN Soiling. -Bilateral Heel Protectors -Sacral - Allevyn Foam Sacrum Every Other Day. -Turn and reposition every 2 hours -Continue Alternating Pressure Air Mattress -Shear Friction Precautions -Wheel Chair Cushion when Out of Bed. Thank you for consulting with Wound Care. Addendum: 09/19/18 at 1624 by Bolivar Cadet RN Amended: Links added.
[2018-09-19] MEDS: MUPIROCIN 2% OINT 22 GM TUBE TOP SCH (17:41)
[2018-09-19] MEDS ORDERED: ZOLPIDEM TARTRATE 5 MG TAB PO PRN (18:30)
--- NOTE | 2018-09-19 18:34 | NUR ---
patient resting in bed, Alert with no distress, not in any pain, call light in reach
--- NOTE | 2018-09-19 19:06 | Diagnostic Imaging Report ---
Exam: Left foot series, 3 views. Clinical History: Cellulitis, left leg injury, status post fall Comparison: None. Findings: 3 views of the left foot. There is markedly decreased bone mineralization, which limits evaluation of bony structures.. Acute, mildly displaced transverse fracture of the fifth metatarsal distal metaphysis with mild plantar angulation of the distal fracture fragment. Acute mildly displaced oblique fracture of the fifth metatarsal proximal metaphysis. Other bony structures of the foot are intact, within the limitations of the study. No cortical erosion or destruction. Mild degenerative changes in the first metatarsophalangeal joint. Moderate soft tissue swelling surrounding the foot. Impression: 1. Markedly decreased bone mineralization, which may be due to disuse, which limits evaluation of the bony structures. 2. Acute mildly displaced fractures of the fifth metatarsal proximal and distal metaphysis Signed by: Dr. Balbir Celaya M.D. on 09/19/2018 7:02 PM
--- NOTE | 2018-09-19 19:07 | Diagnostic Imaging Report ---
Exam: Left lower leg, AP and lateral History: Status post fall, quadriplegic, left leg swelling Comparison: None. Acute, comminuted mildly displaced spiral fracture of the distal tibial diaphysis. Acute, mildly displaced oblique fracture of the distal fibular metaphysis. Other bony structures are intact. No abnormal soft tissue calcification or soft tissue defect. Mild soft tissue swelling in the ankle. Impression: 1. Acute comminuted mildly displaced spiral fracture of the distal tibial diaphysis and mildly displaced oblique fracture of the distal fibular metadiaphysis. Signed by: Dr. Balbir Celaya M.D. on 09/19/2018 7:04 PM
--- NOTE | 2018-09-19 22:00 | History and Physical ---
HISTORY OF PRESENT ILLNESS: Oorfz-pjio-ibe male with past medical history positive for paraplegia and urostomy. Patient came here because of redness on the left leg. Apparently also he fell from the wheelchair and he has swelling on the left lower extremity. REVIEW OF SYSTEMS: CARDIOVASCULAR: No chest pain, no palpitation. RESPIRATORY: No shortness of breath, no cough. GASTROINTESTINAL: No nausea, no vomiting, no diarrhea. GENITOURINARY: No frequency, no dysuria. MUSCULOSKELETAL: He has redness and swelling on the left leg. VITAL SIGNS: Blood pressure is 93/54, temperature 97.7, heart rate 65 per minute, respiratory rate 19 per minute, oxygen saturation 99%. LABS: On the BMP, sodium 130, potassium 4.2, chloride 97, CO2 27, BUN 11, creatinine 0.66, glucose 84. AST 23, ALT 21, total bilirubin 1.0, alkaline phosphatase of 68. FINAL IMPRESSION: 1. Left leg cellulitis. 2. Edema of the left leg, status post . 3. Paraplegia. PLAN OF TREATMENT: We are going to do a venous Doppler on the left leg, and x-ray on the left foot and the left leg. We are going to continue Zosyn 3.375 g IV piggyback q.6h., vancomycin 1 g IV twice a day. Continue D5 normal saline at 120 mL an hour, Tylenol 650 mg p.o. q.6h. as needed for pain and fever, Zofran 4 mg IV q.4h. as needed, morphine 2 mg IV q.4h. as needed, Pepcid 20 mg twice a day, Ambien 5 mg at night, Benadryl 25 mg q.6h. as needed for itching, castor oil daily, clonidine 0.1 mg 3 times a day and mupirocin 1 application twice a day. Job#: [id number]
[2018-09-19] MEDS: SUCRALFATE 1 GM TAB PO SCH (23:40)
[2018-09-20] VITALS (7 sets, daily range): BP systolic 99–136; BP diastolic 57–78
[2018-09-20] MEDS: PIPER-TAZ 3.375 GM 50 ML IV SCH ×4 (02:41→20:36)
[2018-09-20] MEDS: VANCOMYCIN 1GM/NS 250 ML 250 ML IV SCH ×2 (03:33→15:00)
[2018-09-20] MEDS: SUCRALFATE 1 GM TAB PO SCH ×4 (05:44→23:39)
[2018-09-20] MEDS: DEXTROSE 5%/0.9% SOD CHL 1,000 ML IV SCH ×2 (05:44→13:15)
--- NOTE | 2018-09-20 06:37 | NUR ---
SPOKE WITH DR VILCHIS. INFORMED HIM OF XRAY RESELTS. CONSULTED DR KELLEY.
--- NOTE | 2018-09-20 07:00 | NUR ---
Walking rounds done and report received. Patient is resting quietly without any complaints voiced at this time. POC discussed. Patient instructed to call for assistance as needed and verbalized understanding. Patient refused to turn to right side states he only turns every 4 hours. I explained to patient the importance in preventing skin break down and continued to decline at this time. "I will let you know when I am ready to turn." Call etienne within reach.
[2018-09-20] MEDS: FAMOTIDINE 20 MG TAB PO SCH ×2 (09:02→16:30)
[2018-09-20] MEDS: ACETAMINOPHEN 325 MG TAB PO PRN ×3 (09:10→22:05)
--- NOTE | 2018-09-20 09:19 | NUR ---
INPT ORDERS IMM EXPLAINED TO PT, SIGNED AND ON CHART COPY TO PT IN CARE TRANSITIONS FOLDER
[2018-09-20] MEDS: MUPIROCIN 2% OINT 22 GM TUBE TOP SCH ×2 (10:00→16:52)
[2018-09-20] MEDS: BALSAM PERU/CASTOR OIL 60 GM OINT...G. TP SCH (10:00)
--- NOTE | 2018-09-20 12:40 | NUR ---
RCD PT FROM OBSERVATION BY BED PT IS ALERT AND ORIENTED VITALS CHECKED UROSTOMY TUBE DRAINING GOOD BED LOW AND LOCKED CALL LIGHT IN REACH
--- NOTE | 2018-09-20 12:49 | NUR ---
Report called to Imelda Sadler RN, all questions answered at this time. Patient transferred to room 206 via bed in stable condition.
--- NOTE | 2018-09-20 14:10 | NUR ---
PATIENT INITIAL ASSESSMENT REVIEWED. INFORMATION STILL HOLDS ACCURATE PER PATIENT. PATIENT ADMITTED FROM OBS STATUS. PATIENT WITH CELLULITIS AND ON 2 IV ABX. WOUND CONSULT ON THE CASE. PATIENT UNDERSTOOD. IMM GIVEN BY LILLI GARRISON. PENDING ROUNDS FOR POC.
--- NOTE | 2018-09-20 14:58 | Consultation ---
DATE OF CONSULTATION: September 20, 2018 PODIATRY CONSULTATION REASON FOR CONSULTATION: Fractured left foot. HISTORY OF PRESENT ILLNESS: This is a pleasant 62-year-old white male who was seen at bedside, accompanied by nurse, who was admitted secondary to cellulitis and fever and chills for the last couple of days. While in the hospital, he was found to have a bruised foot and was found to have a fractured left foot. He is having some fever right now. Denies any nausea, vomiting or chills. Patient fell from a wheelchair, possibly on September 09 according to the patient. PAST MEDICAL HISTORY: Remarkable for acid reflux. PAST SURGICAL HISTORY: Remarkable for back surgery and neck surgery. Patient is quadriplegic. Had a bladder surgery also. ALLERGIES: PATIENT DENIES. SOCIAL HISTORY: Drinks on occasion. Does not smoke or do any type of recreational drugs. Lives at home with his brother. FAMILY HISTORY: Remarkable for diabetes. CURRENT MEDICATIONS: Note list in chart including IV Zosyn and vancomycin. VITAL SIGNS: Has a temp of 99.9, pulse rate 82, respiration 14, blood pressure 134/71, O2 saturation 98%. LABS NOTED: Has a white blood cell count of 4.29, hemoglobin 9.7 with a platelet count of 148. Has a blood glucose of 84. REVIEW OF SYSTEMS: CARDIAC: Denies any palpitations or arrhythmias. RESPIRATORY: Denies any shortness of breath, productive cough. GASTROINTESTINAL: Denies any abdominal pain. PODIATRIC PHYSICAL EXAMINATION: Reveals the following. VASCULATURE: Pedal pulses of both the DP and PT are diminished. CFT to all toes less than 5 seconds. Skin temperature warm and cool to touch. NEUROLOGICAL: Reveals complete loss of protective sensation when utilizing the Mcconnell-Arlen 5.07 monofilament wire. MUSCULOSKELETAL: Reveals the muscle mass to be symmetrical and wasted. Muscle strength is unobtainable secondary to the patient being quadriplegic. There is some bruising noted to the left lower extremity with no open lesions noted. X-RAYS: Were evaluated, revealing demineralization of the bones with osteoporosis. Has what appears to be a fractured 5th metatarsal base fracture and fractured 5th metatarsal head with minimal displacement. ASSESSMENT: Edema with a fractured 5th metatarsal left foot. PLAN: Will continue to observe. Patient will be placed in an Unna boot once the swelling subsides a little bit. Will continue to follow. Continue offloading with Waffle boots. Job#: [id number] EV
--- NOTE | 2018-09-20 18:39 | NUR ---
PT RESTING ON BED BED SIDE REPORT GIVEN TO ONCOMING NURSE
--- NOTE | 2018-09-20 19:00 | NUR ---
RECEIVED PATIENT ALERT AND VERBAL. UROSTOMY IN PLACE TO RIGHT SIDE AND DRAINING WELL.
--- NOTE | 2018-09-20 21:06 | Progress Note ---
DATE: INTERNAL MEDICINE PROGRESS NOTE SUBJECTIVE: Patient is doing well. Still complains of insomnia. PHYSICAL EXAMINATION: VITAL SIGNS: Blood pressure 99/57, temperature 99 degrees, heart rate 70 per minute, respiratory rate is 20 per minute, oxygen saturation 98%. HEART: Shows regular rhythm. Normal S1 and S2 sounds. LUNGS: Clear bilaterally. ABDOMEN: Soft. EXTREMITIES: Showed paraplegia, redness on the left leg and swelling also. LABS: On the BMP, sodium 130, potassium 4.2, chloride 97, CO2 27, BUN 11, creatinine 0.66, glucose 84. On the CBC, white blood count 4.29, hemoglobin 9.7, hematocrit 27.7, platelet count 148,000. AST 23, ALT 21, total bilirubin 1.0, alkaline phosphatase 68. FINAL IMPRESSION: 1. Left leg cellulitis. 2. Tibial, fibular, and left fifth metatarsal fractures. 3. Paraplegia. 4. Hyponatremia also. PLAN OF TREATMENT: Continue Zosyn and vancomycin. Continue Tylenol and Zofran as needed. Carafate 1 g q.6h., Pepcid 20 mg twice a day, Ambien 5 mg at night p.r.n. for sleep, Benadryl 25 mg q.6h. as needed, Balsam Lenin and castor oil daily, morphine 2 mg IV q.4h., clonidine 0.1 mg 3 times a day as needed, mupirocin 1 application topically twice a day. We are going to consult Dr. Stock for orthopedic surgery since the patient has distal fibular and tibial fractures. Dr. Choudhary is on the case for the foot fracture. He had a left fifth metatarsal fracture. Patient has no pain because he is paraplegic, he most likely would need any significant orthopedic intervention , but we are going to get opinion from the orthopedic surgeon anyway. Job#: [id number]
--- NOTE | 2018-09-20 21:15 | Progress Note ---
DATE: ADDENDUM Venous Doppler of the left leg came back negative for DVT. Job#: [id number] GE
[2018-09-20] MEDS: DIPHENHYDRAMINE HCL 25 MG CAP PO PRN (22:04)
[2018-09-21] VITALS (8 sets, daily range): BP systolic 102–134; BP diastolic 59–72
--- NOTE | 2018-09-21 00:05 | NUR ---
PATIENT HAS ELEVATED TEMP. PREVIOUSLY MEDICATED WITH TYLENOL.
[2018-09-21] MEDS: PIPER-TAZ 3.375 GM 50 ML IV SCH ×4 (02:15→20:25)
[2018-09-21] MEDS: ACETAMINOPHEN 325 MG TAB PO PRN ×2 (03:48→15:30)
[2018-09-21] MEDS: VANCOMYCIN 1GM/NS 250 ML 250 ML IV SCH (03:48)
[2018-09-21] MEDS: SUCRALFATE 1 GM TAB PO SCH ×4 (05:25→23:34)
[2018-09-21 05:31] LABS: BLOOD UREA NITROGEN 10 mg/dL (7-26); BUN/CREATININE RATIO 15 (6-25); CALCIUM 8.4 mg/dL (8.4-10.2); CARBON DIOXIDE 22 mmol/L (22-29); CHLORIDE 96 mmol/L (98-107); CREATININE, SERUM 0.68 mg/dL (0.72-1.25); EST GLOMERULAR FILTRATION RATE > 60 ML/MIN (60-); GLUCOSE 88 mg/dL (74-118); SODIUM 125 mmol/L (136-145)
--- NOTE | 2018-09-21 07:08 | NUR ---
REPORT GIVEN TO ONCOMING NURSE.
--- NOTE | 2018-09-21 07:10 | NUR ---
RCD PT AT BED PT IS ALERT AND ORIENTED ASSESSMENT DONE PT RESTING ON BED NO SIGNS OF ANY DISTRESS NOTED IV PATENT BED LOW AND LOCK CALL LIGHT IN REACH
--- NOTE | 2018-09-21 07:29 | Progress Note ---
DATE: September 21, 2018 SUBJECTIVE: Patient at bedside. Doing okay. Denies any history of fever, chills, nausea, or vomiting. OBJECTIVE VITALS: Does have a temp of 100, pulse rate 84, respirations 18, blood pressure 113/65, O2 saturation 97%. EXTREMITIES: Positive ecchymosis noted to the left foot secondary to a fractured 5th met base with metatarsal with minimal displacement. Positive cellulitis of the left lower extremity. Pedal pulses are diminished. He is negative for any DVT. ASSESSMENT: Fractured foot and cellulitis. PLAN: Continue IV vancomycin. Continue offloading. Will continue to monitor. Patient may be placed in an Unna boot possibly tomorrow. Job#: [id number] MARCO
[2018-09-21] MEDS: FAMOTIDINE 20 MG TAB PO SCH ×2 (07:30→16:30)
[2018-09-21] MEDS: BALSAM PERU/CASTOR OIL 60 GM OINT...G. TP SCH (09:00)
[2018-09-21] MEDS: MUPIROCIN 2% OINT 22 GM TUBE TOP SCH ×2 (09:00→17:00)
[2018-09-21] MEDS ORDERED: SODIUM CHLORIDE 0.9% 250ML 250 ML ONE (09:58)
--- NOTE | 2018-09-21 14:23 | Consultation ---
DATE OF CONSULTATION: September 21, 2018 ORTHOPEDIC CONSULTATION REASON FOR CONSULTATION: Left lower extremity fracture secondary to a fall. HISTORY OF PRESENT ILLNESS: This patient is a 62-year-old male with a significant history of being an incomplete quadriplegic since 1977. He reportedly had a C4 injury due to an industrial accident. He states that he uses a wheelchair to get around. He states that 3 days ago he fell forward from his wheelchair and caught his left leg in the footrest. He was brought into [facility]'s ER where x-rays of the left lower extremity were obtained. These x-rays showed a tibial shaft fracture, a distal fibular fracture as well as a 5th metatarsal fracture. Thus, Orthopedics was consulted. PAST MEDICAL HISTORY: See H&P. PHYSICAL EXAMINATION: In general, this is a pleasant male who appears thin and has global atrophy in his upper and lower extremities. Examination is significant for severe flexion contractures at both hips and knees. He is lying in bed supine with his legs drawn up. Gross inspection of the left lower extremity shows circumferential cellulitis from the left foot up to the mid mcmanus. He has some bruising in the left foot and on the heel. There are no open wounds noted. There is 2+ edema in the left lower extremity compared to the right. He can wiggle his toes and has 1 out of 5 strength with dorsiflexion and plantarflexion. He has virtually no active range of motion in the left hip or left knee. There is no tenderness to palpation or sensation in the left lower extremity. There is some slight crepitus to palpation around the lower midshaft of the mcmanus. IMAGING: X-rays of the left foot and left lower extremity were reviewed. These show a mildly displaced spiral fracture of the distal third of the tibia shaft with a distal fibula fracture. He also has a 5th metatarsal fracture in the left foot. Bones are severely osteopenic. ASSESSMENT AND PLAN: This is a 62-year-old male with a left tibial shaft fracture, a distal fibular fracture and left 5th metatarsal fracture. He has a significant history of incomplete quadriplegia. He is wheelchair-bound and does not walk. He also has some cellulitis in the left lower extremity The findings and options were discussed with the patient. Given his lack of ambulation and quadriplegia, I would not recommend any surgical intervention. Typically we would treat this with a long-leg cast given his flexion contracture. I do not believe he would tolerate this. I have recommended that he go into a tib-fib orthosis to stabilize the fracture. This would allow Wound Care to assess the skin on a regular basis. He will avoid putting any weight on the left lower extremity. I have recommended repeat x-rays in two weeks. No further inpatient orthopedic intervention is anticipated at this time. Thank you for the consultation. Dictated by: Arthur Cerna PA-C Job#: [id number] EV
--- NOTE | 2018-09-21 15:08 | NUR ---
PAGED AND NOTIFIED [facility] TO DR VILCHIS 23.1 GOT NEW ORDERS
--- NOTE | 2018-09-21 15:13 | NUR ---
DRESSING CHANGED ON THE LOWER SACRUM
--- NOTE | 2018-09-21 19:01 | NUR ---
PT RESTING ON BED BED SIDE REPORT GIVEN TO ONCOMING NURSE
--- NOTE | 2018-09-21 19:04 | NUR ---
Patient is alert and oriented. urostomy in place and draining well.
--- NOTE | 2018-09-21 20:10 | NUR ---
Bp rechecked manually 110/70 mmhg.
[2018-09-21] MEDS: SODIUM CHLORIDE 1 GM TAB PO SCH (20:25)
--- NOTE | 2018-09-21 21:57 | Discharge Summary ---
HOSPITAL COURSE: A 62-year-old male with past medical history positive for paraplegia, came here with cellulitis on the left leg. Also, he was found to have fractures on both tibial bones and left 5th metatarsal bone. Patient was seen by Dr. Choudhary, electromechanical technician, and Dr. Stock also. They are going to prescribe a boot before the patient lives. Patient is paraplegic; he is unable to ambulate; so, he does not qualify for any kind of surgical intervention. So, we are going to give more conservative care. PHYSICAL EXAM: The heart shows regular rhythm. Normal S1 and S2 sounds. Lungs are clear bilaterally. Extremities show decreased redness on the left lower extremity. Blood pressure 124/63, temperature 100.2, heart rate 76 per minute, respiratory rate 20 per minute, and oxygen saturation 98%. FINAL IMPRESSIONS 1. Cellulitis on the left leg. 2. Closed fractures on both distal tibial and fibular bones and left 5th metatarsal bone. PLAN OF TREATMENT: Patient is going to be discharged on Keflex 250 mg p.o. q.6 h. x10 days. Patient is going to get sodium tablets 2 g twice a day. We are going to repeat a BMP tomorrow. As long as his sodium is more than 125, he should be able to go home tomorrow. Patient completely asymptomatic. Follow up with Dr. Stock in 1 or 2 weeks, myself in a week. Dr. Stock and Dr. Choudhary will decide about the conservative treatment prior to discharge. SISSY VILCHIS MD Job#: [id number] CF
[2018-09-21] MEDS: DIPHENHYDRAMINE HCL 25 MG CAP PO PRN (22:00)
[2018-09-22] VITALS (7 sets, daily range): BP systolic 94–139; BP diastolic 56–75
[2018-09-22] MEDS: ACETAMINOPHEN 325 MG TAB PO PRN ×2 (01:18→11:35)
[2018-09-22] MEDS: PIPER-TAZ 3.375 GM 50 ML IV SCH ×2 (02:08→09:38)
[2018-09-22] MEDS: SUCRALFATE 1 GM TAB PO SCH ×3 (05:23→13:26)
[2018-09-22 05:34] LABS: ANION GAP 10.9 mmol/L (8-16); BLOOD UREA NITROGEN 13 mg/dL (7-26); BUN/CREATININE RATIO 20 (6-25); CALCIUM 8.4 mg/dL (8.4-10.2); CARBON DIOXIDE 24 mmol/L (22-29); CHLORIDE 94 mmol/L (98-107); CREATININE, SERUM 0.66 mg/dL (0.72-1.25); EST GLOMERULAR FILTRATION RATE > 60 ML/MIN (60-); GLUCOSE 79 mg/dL (74-118); POTASSIUM 3.9 mmol/L (3.5-5.1); SODIUM 125 mmol/L (136-145)
--- NOTE | 2018-09-22 07:18 | NUR ---
Report given to oncoming nurse.
--- NOTE | 2018-09-22 08:49 | Progress Note ---
DATE: September 22, 2018 SUBJECTIVE: Patient seen at bedside, doing better. Denies any shortness of breath, chest pain, or chills. He does have some low-grade fever. OBJECTIVE: Vitals: Temp 99.0. Pulse rate 74. Respirations 18. Blood pressure 115/67. O2 saturation 100%. Cellulitis to the left lower extremity continues to get better. Still some edema and ecchymosis noted to the left foot. Pedal pulses are palpable. ASSESSMENT: Fractured left foot with cellulitis. PLAN: Will continue IV antibiotics. Continue offloading. Will let the foot unswell a little bit more before an Unna boot is applied. Job#: [id number]
[2018-09-22] MEDS: MUPIROCIN 2% OINT 22 GM TUBE TOP SCH (09:38)
[2018-09-22] MEDS: BALSAM PERU/CASTOR OIL 60 GM OINT...G. TP SCH (09:38)
[2018-09-22] MEDS: FAMOTIDINE 20 MG TAB PO SCH (09:38)
[2018-09-22] MEDS: SODIUM CHLORIDE 1 GM TAB PO SCH (09:38)
--- NOTE | 2018-09-22 10:43 | NUR ---
CM SPOKE TO PATIENT AT BEDSIDE REGARDING IMM LETTER. IMM GIVEN WITH EXPLANATION PATIENT WITH NO FURTHER QUESTIONS. PATIENT SIGNED DOCUMENT WITH INITIALS DUE TO BEING A QUADRIPLEGIC. SIGNED COPY PLACED IN CHART. COPY OF SIGNED DOCUMENT GIVEN TO PATIENT AND PLACED IN CARE TRANSITION FOLDER. CM GAVE PATIENT CONTACT INFO FOR ANY FUTURE QUESTIONS OR CONCERNS. CM SPOKE WITH BEDSIDE HANNA DE JESUS AND PHYSICAL THERAPIST REGARDING ORDER BY MD FOR FRACTURE BOOT TO BE PLACED ON PATIENT PRIOR TO DISCHARGE. PHYSICAL THERAPIST STATES TO PUT IN A PT CONSULT ORDER WITH BOOT TYPE FOR THEM TO ORDER AND PLACE ON PATIENT. NEAL PUTTING IN ORDER TO PT AND CALLING HOCKEY PLAYER TO RECEIVE BOOT FOR PATIENT.
--- NOTE | 2018-09-22 14:35 | Discharge Summary ---
ADDENDUM A 62-year-old male, paraplegic. He came here with cellulitis of the left leg. He was found to have a fracture in the distal aspect of the tibia and fibula and the left 5th metatarsal bone. Patient has been seen by Dr. Ludin Stock and Dr. Lucius Choudhary. A boot will be placed today. The sodium was 125. He was started on sodium tablets. He is going to be switched to Keflex for antibiotic on discharge. He is going to follow up with his primary care physician, Dr. Bautista. PHYSICAL EXAMINATION VITALS: Blood pressure 128/74, temperature 98 degrees, heart rate 82 per minute, respiratory rate 18 per minute, oxygen saturation 96%. HEART: Shows regular rhythm. Normal S1 and S2 sounds. LUNGS: Clear bilaterally. EXTREMITIES: Show decreased redness on the left lower extremity. On the BMP, sodium 125, potassium 3.9, chloride 94, CO2 24, BUN 13, creatinine 0.66, glucose 79. On the CBC, white blood count 4.29, hemoglobin 9.7, hematocrit 27.7, and platelet count 148,000. AST 23, ALT 21, total bilirubin 1, alkaline phosphatase 68. FINAL IMPRESSION 1. Cellulitis of the left leg. 2. Closed fractures on the distal fibular and tibial and left 5th metatarsal bones. 3. Paraplegia. 4. Hyponatremia. Patient is going to be discharged on the medications dictated yesterday in my prior discharge summary. Patient is going to follow up with his primary care physician, Dr. Bautista in a week. He is going to see Dr. Choudhary and Dr. Stock, orthopedic surgeon and sound recording technician, in a week also. SISSY VILCHIS MD Job#: [id number] [place]
[2018-09-22] MEDS ORDERED: VANCOMYCIN 1GM/NS 250 ML 250 ML IV SCH (15:15)
[2018-09-22] MEDS ORDERED: KEFLEX250 MG PO (16:21)
[2018-09-22] MEDS ORDERED: SODIUM CHLORIDE1 GM PO (16:22)
== END 2018-09-22 17:04 | disposition home or self-care (01) | DRG 602 ==
LOC: ER 17:48 → ERHOLD 20:33 → IMCU 22:17 → OBSVTOIN 09-20 09:07 → MED/SURG2 09-20 12:33
PROVIDERS: ADMIT Internal Medicine; ATTEND Internal Medicine
DX: L03.116 Cellulitis of left lower limb (principal); G82.52 Quadriplegia, C1-C4 incomplete; E87.1 Hypo-osmolality and hyponatremia; G82.20 Paraplegia, unspecified; S82.442A Displaced spiral fracture of shaft of left fibula, initial encounter for closed fracture; S82.392A Other fracture of lower end of left tibia, initial encounter for closed fracture; S92.342A Displaced fracture of fourth metatarsal bone, left foot, initial encounter for closed fracture; W05.0XXA Fall from non-moving wheelchair, initial encounter; T14.8XXS Other injury of unspecified body region, sequela; M85.872 Other specified disorders of bone density and structure, left ankle and foot; M24.552 Contracture, left hip; M24.551 Contracture, right hip; M24.562 Contracture, left knee; M24.561 Contracture, right knee; Z99.3 Dependence on wheelchair; S92.352A Displaced fracture of fifth metatarsal bone, left foot, initial encounter for closed fracture
CPT/HCPCS: 36415; 80048; 80053; 80202; 83605; 85025; 87040; 93971; 99284; G0378; J1650; J2270; J2543; J3370; J7042; J7050

== ENCOUNTER → 2024-03-21 | Day surgery (SDC) | payer MEDICARE ==
[2024-03-19 11:37] LABS: BASOPHILS % 0.5 % (0.0-1.0); EOSINOPHILS # (AUTO) 0.1 (0.0-0.4); EOSINOPHILS % 1.3 % (0.0-6.0); HEMATOCRIT 34.7 % (38.2-49.6); HEMOGLOBIN 11.6 g/dL (14.0-18.0); LYMPHOCYTES # (AUTO) 1.9 (1.0-3.2); LYMPHOCYTES % 22.9 % (18.0-39.1); MEAN CORPUSCULAR HEMOGLOBIN 30.9 pg (28-32); MEAN CORPUSCULAR HGB CONC 33.4 g/dL (31-35); MEAN CORPUSCULAR VOLUME 92.5 fL (81-99); MONOCYTES # (AUTO) 0.5 (0.2-0.8); MONOCYTES % 6.1 % (4.4-11.3); NEUTROPHILS # (AUTO) 5.4 (2.1-6.9); NEUTROPHILS % 64.9 % (38.7-80.0); PLATELET COUNT 199 x10e3/uL (140-360); RED BLOOD COUNT 3.75 x10e6/uL (4.3-5.7)
[~2024-03-21] MED LIST changes: +CEFPODOXIME PR200 MG PO; +EPHEDRINE SULFATE INJ 50 MG/ML VIAL ONE; +FENTANYL CITRATE/PF 100MCG/2 ML INJ ONE; +KEFLEX250 MG PO; +METOCLOPRAMIDE HCL 10 MG/2ML VIAL ONE; +MULTI-VITAMIN1 EACH PO; -NEXIUM; +NEXIUM PO; +PROPOFOL IV EMULSION 10 MG/ML 20 ML VIAL ONE; +SIMETHICONE 40 MG/0.6 ML BTL ONE; +SODIUM CHLORIDE1 GM PO; +ULTRAM50 MG PO; +VITAMIN C1000 MG PO
[2024-03-21 07:40] VITALS: TEMP 97.5
[2024-03-21] MEDS: LACTATED RINGER'S 1,000 ML ONE (08:05)
[2024-03-21 08:10] VITALS: BP 109/69; PULSE 65; RESP 13; O2SAT 98
== END | disposition home or self-care (01) ==
LOC: OR 06:19
PROVIDERS: ATTEND Internal Medicine Gastroenterology
DX: K29.70 Gastritis, unspecified, without bleeding (principal); K31.1 Adult hypertrophic pyloric stenosis; K25.9 Gastric ulcer, unspecified as acute or chronic, without hemorrhage or perforation; K22.10 Ulcer of esophagus without bleeding; T47.1X5A Adverse effect of other antacids and anti-gastric-secretion drugs, initial encounter; K31.89 Other diseases of stomach and duodenum; K21.9 Gastro-esophageal reflux disease without esophagitis; Z71.3 Dietary counseling and surveillance; N39.0 Urinary tract infection, site not specified; N20.0 Calculus of kidney; N28.9 Disorder of kidney and ureter, unspecified; G82.50 Quadriplegia, unspecified; Z71.89 Other specified counseling; Z01.810 Encounter for preprocedural cardiovascular examination; Z01.812 Encounter for preprocedural laboratory examination; Z68.32 Body mass index [BMI] 32.0-32.9, adult
CPT/HCPCS: 36415; 43239; 43245; 85025; 93005; J2470; J2704; J2765; J3010; J7121; 43450

== ENCOUNTER → 2024-04-09 | Outpatient (REF) | payer MEDICARE ==
[~2024-04-09] MED LIST changes: -EPHEDRINE SULFATE INJ 50 MG/ML VIAL ONE; -FENTANYL CITRATE/PF 100MCG/2 ML INJ ONE; +FUROSEMIDE INJ 10 MG/ML 4 ML VIAL ONE; -METOCLOPRAMIDE HCL 10 MG/2ML VIAL ONE; -PROPOFOL IV EMULSION 10 MG/ML 20 ML VIAL ONE; -SIMETHICONE 40 MG/0.6 ML BTL ONE
== END ==
LOC: NM 11:38
PROVIDERS: ATTEND Urology
DX: N20.0 Calculus of kidney (principal)
CPT/HCPCS: 74176; 78708; A9562; J1940

== ENCOUNTER 2024-12-05 11:08 | Inpatient (IN) | payer MEDICARE ==
[2024-12-05] VITALS (10 sets, daily range): BP systolic 86–144; BP diastolic 59–107; PULSE 73–89; RESP 16–21; TEMP 98.2–98.3; O2SAT 90–99
[~2024-12-05] VITALS: Ht 162.6 cm; Wt 49.4 kg
[~2024-12-05 11:08] MED LIST changes: +DEXTROSE 50% SYRINGE 50 ML IV ONE; +ETOMIDATE 2 MG/ML 10 ML INJ IV ONE; -FUROSEMIDE INJ 10 MG/ML 4 ML VIAL ONE; +SUCCINYLCHOLINE CHLORIDE 20 MG/ML 10ML VIAL ONE
[2024-12-05] MEDS ORDERED: SODIUM CHLORIDE 0.9% 1000ML 2,000 ML ONE (11:22)
[2024-12-05] MEDS ORDERED: SODIUM CHLORIDE 0.9% IV SCH (11:30)
[2024-12-05 11:42] LABS: ABG HCO3 22 mmol/L (22-26); ABG PCO2 53 mmHg (35-45); ABG PH 7.22 (7.35-7.45); ABG PO2 294 mmHg (80-105); ABG TCO2 23
[2024-12-05] MEDS: DEXTROSE 50% SYRINGE 50 ML IV STA (11:47)
[2024-12-05 11:52] LABS: BASOPHILS % 0.1 % (0.0-1.0); HEMATOCRIT 34.4 % (38.2-49.6); HEMOGLOBIN 11.8 g/dL (14.0-18.0); LYMPHOCYTES # (AUTO) 2.4 (1.0-3.2); MEAN CORPUSCULAR HEMOGLOBIN 31.8 pg (28-32); MEAN CORPUSCULAR HGB CONC 34.3 g/dL (31-35); MEAN CORPUSCULAR VOLUME 92.7 fL (81-99); MONOCYTES # (AUTO) 0.6 (0.2-0.8); MONOCYTES % 6.9 % (4.4-11.3); NEUTROPHILS # (AUTO) 5.9 (2.1-6.9); NEUTROPHILS % 65.8 % (38.7-80.0); PLATELET COUNT 92 x10e3/uL (140-360); RED BLOOD COUNT 3.71 x10e6/uL (4.3-5.7); RED CELL DISTRIBUTION WIDTH 13.7 % (11.7-14.4); WHITE BLOOD COUNT 8.96 x10e3/uL (4.8-10.8)
[2024-12-05] MEDS: SODIUM CHLORIDE 0.9% 1000ML 1,000 ML IV ONE (11:58)
[2024-12-05 12:03] LABS: INR 1.03; PROTHROMBIN TIME 14.1 seconds (11.9-14.5)
[2024-12-05 12:04] LABS: PARTIAL THROMBOPLASTIN TIME 39.3 seconds (23.8-35.5)
[2024-12-05 12:12] LABS: ALBUMIN 3.5 g/dL (3.5-5.0); ALBUMIN/GLOBULIN RATIO 1.5 (0.8-2.0); ANION GAP 19.3 mmol/L (8-16); CALCIUM 8.8 mg/dL (8.4-10.2); CREATININE, SERUM 0.74 mg/dL (0.72-1.25); POTASSIUM 4.3 mmol/L (3.5-5.1); TOTAL PROTEIN 5.9 g/dL (6.5-8.1)
[2024-12-05] MEDS: Vancomycin IV 1 GM in SODIUM CHLORIDE 0.9% 250ML 250 ML IV ONE (12:17)
[2024-12-05] MEDS: SODIUM CHLORIDE 0.9% 1000ML 1,000 ML IV SCH ×2 (12:17→16:06)
[2024-12-05] MEDS: CEFEPIME 2 GM in SODIUM CHLORIDE 0.9% 100 ML IV ONE (12:17)
[2024-12-05 12:58] LABS: CLARITY,URINE TURBID (CLEAR); COLOR,URINE YELLOW (YELLOW); PH,URINE 7 (5 - 7)
[2024-12-05 12:59] LABS: LEUKOCYTE ESTERASE ,URINE TRACE (NEGATIVE)
[2024-12-05 13:00] LABS: BILIRUBIN,URINE SMALL (NEGATIVE); GLUCOSE, URINE NEGATIVE (NEGATIVE); KETONES,URINE 2+ (NEGATIVE); NITRITE,URINE NEGATIVE (NEGATIVE); PROTEIN,URINE DIPSTICK NEGATIVE (NEGATIVE); URINE UROBILINOGEN 1 mg/dL (0.2 - 1)
[2024-12-05 13:01] LABS: BACTERIA,URINE MODERATE /HPF; EPITHELIAL CELLS,URINE FEW /LPF; TRIPLE PHOSPHATE CRYSTAL,UR MANY
[2024-12-05] MEDS ORDERED: ONDANSETRON HCL INJ 2MG/ML 2ML 2 MG/ML VIAL IV PRN (13:15)
[2024-12-05 14:29] LABS: INFLUENZA A AG POSITIVE (NEGATIVE)
[2024-12-05 14:30] LABS: CORONAVIRUS COVID-19 AG NEGATIVE (NEGATIVE); INFLUENZA B AG NEGATIVE (NEGATIVE)
[2024-12-05] MEDS: MUPIROCIN 2% OINT 22 GM TUBE TOP SCH (16:06)
[2024-12-05] MEDS ORDERED: ACETAMINOPHEN 325 MG TAB PO PRN (18:00)
[2024-12-05] MEDS ORDERED: ALBUTEROL/IPRATROPIUM 3 ML NEB NEB PRN (18:00)
[2024-12-05] MEDS ORDERED: sodium (23:05)
[2024-12-05] MEDS ORDERED: vitamin d (23:05)
[2024-12-05] MEDS: OSELTAMIVIR PHOSPHATE 75 MG CAP PO SCH (23:09)
[2024-12-05] MEDS: DIPHENHYDRAMINE HCL 25 MG CAP PO PRN (23:41)
[2024-12-05] MEDS: BENZONATATE 100 MG CAP PO SCH (23:41)
[2024-12-05] MEDS: GUAIFENESIN 600 MG TAB PO PRN (23:41)
[2024-12-06] VITALS (21 sets, daily range): BP systolic 98–144; BP diastolic 55–96; PULSE 51–93; RESP 15–30; TEMP 98–98.7; O2SAT 89–100
[2024-12-06 06:41] LABS: LYMPHOCYTES # (AUTO) 0.4 (1.0-3.2); LYMPHOCYTES % 9.3 % (18.0-39.1); MEAN CORPUSCULAR HEMOGLOBIN 31.5 pg (28-32); MEAN CORPUSCULAR HGB CONC 33.1 g/dL (31-35); MEAN CORPUSCULAR VOLUME 95.4 fL (81-99); MONOCYTES # (AUTO) 0.3 (0.2-0.8); MONOCYTES % 6.2 % (4.4-11.3); NEUTROPHILS # (AUTO) 3.5 (2.1-6.9); NEUTROPHILS % 83.5 % (38.7-80.0)
[2024-12-06 09:38] LABS: FERRITIN 273.16 ng/mL (21.81-274.66)
[2024-12-06 09:58] LABS: ALBUMIN 2.7 g/dL (3.5-5.0); ANION GAP 12.5 mmol/L (8-16); BILIRUBIN,TOTAL 0.3 mg/dL (0.2-1.2); CALCIUM 7.5 mg/dL (8.4-10.2); CREATININE, SERUM 0.68 mg/dL (0.72-1.25); POTASSIUM 3.5 mmol/L (3.5-5.1); TOTAL PROTEIN 4.6 g/dL (6.5-8.1)
[2024-12-06 09:59] LABS: ALBUMIN/GLOBULIN RATIO 1.4 (0.8-2.0)
[2024-12-06 10:35] LABS: HEMOGLOBIN 9.3 g/dL (14.0-18.0)
[2024-12-06 10:36] LABS: HEMATOCRIT 27.5 % (38.2-49.6); PLATELET COUNT 92 x10e3/uL (140-360)
[2024-12-06] MEDS: MAGNESIUM SULFATE 2GM/50ML 50 ML IV ONE (10:37)
[2024-12-06 16:16] LABS: HEMATOCRIT 28.2 % (38.2-49.6); HEMOGLOBIN 9.6 g/dL (14.0-18.0)
[2024-12-06] MEDS: ENOXAPARIN SOD INJ 40 MG/0.4 ML SYR SC SCH (16:42)
[2024-12-06] MEDS ORDERED: METOPROLOL TARTRATE 25 MG TAB PO SCH (23:00)
[2024-12-06] MEDS: METOPROLOL TARTRATE INJ 1 MG/ML VIAL ONE (23:16)
[2024-12-06] MEDS: METOPROLOL TARTRATE INJ 1 MG/ML VIAL IV ONE (23:16)
[2024-12-06] MEDS: AMIODARONE HCL 150 MG/100 ML BAG IV ONE (23:43)
[2024-12-06] MEDS ORDERED: AMIODARONE 900MG 900 MG in Premix Bag 1 BAG IV SCH (23:45)
[2024-12-07] VITALS (69 sets, daily range): BP systolic 87–140; BP diastolic 47–103; PULSE 54–83; RESP 13–28; TEMP 98–99.9; O2SAT 92–100
[2024-12-07] MEDS: AMIODARONE 900MG 500 ML IV ONE (00:13)
[2024-12-07] MEDS ORDERED: HYDRALAZINE HCL 20 MG/ML VIAL IV PRN (03:45)
[2024-12-07] MEDS ORDERED: METOPROLOL TARTRATE INJ 1 MG/ML VIAL IV PRN (03:45)
[2024-12-07 06:57] LABS: BASOPHILS % 0.2 % (0.0-1.0); HEMATOCRIT 26.6 % (38.2-49.6); HEMOGLOBIN 9.2 g/dL (14.0-18.0); LYMPHOCYTES # (AUTO) 0.7 (1.0-3.2); LYMPHOCYTES % 13.9 % (18.0-39.1); MEAN CORPUSCULAR HEMOGLOBIN 31.7 pg (28-32); MEAN CORPUSCULAR HGB CONC 34.6 g/dL (31-35); MEAN CORPUSCULAR VOLUME 91.7 fL (81-99); MONOCYTES # (AUTO) 0.4 (0.2-0.8); MONOCYTES % 7.4 % (4.4-11.3); NEUTROPHILS # (AUTO) 3.8 (2.1-6.9); NEUTROPHILS % 78.1 % (38.7-80.0); PLATELET COUNT 90 x10e3/uL (140-360); RED CELL DISTRIBUTION WIDTH 13.6 % (11.7-14.4); WHITE BLOOD COUNT 4.88 x10e3/uL (4.8-10.8)
[2024-12-07 07:20] LABS: ALBUMIN 2.4 g/dL (3.5-5.0); ALBUMIN/GLOBULIN RATIO 1.2 (0.8-2.0); ANION GAP 10.4 mmol/L (8-16); BILIRUBIN,TOTAL 0.3 mg/dL (0.2-1.2); CALCIUM 7.7 mg/dL (8.4-10.2); CREATININE, SERUM 0.57 mg/dL (0.72-1.25); MAGNESIUM 1.4 MG/DL (1.3-2.1); TOTAL PROTEIN 4.4 g/dL (6.5-8.1)
[2024-12-07 07:31] LABS: POTASSIUM 3.4 mmol/L (3.5-5.1)
[2024-12-07 08:03] LABS: ABG HCO3 21 mmol/L (22-26); ABG PCO2 46 mmHg (35-45); ABG PH 7.27 (7.35-7.45); ABG PO2 95 mmHg (80-105); ABG TCO2 23
[2024-12-07] MEDS: DOCUSATE SODIUM 100 MG CAP PO SCH (09:10)
[2024-12-07] MEDS: MULTIVITAMINS/MINERALS TAB PO SCH (09:10)
[2024-12-07] MEDS: ALBUMIN 5% 0.05 GM/ML BTL IV ONE (09:11)
[2024-12-07] MEDS: ENOXAPARIN SOD INJ 60 MG/0.6 ML SYR SC SCH (09:12)
[2024-12-07] MEDS: POTASSIUM CHLORIDE 20MEQ/100ML 100 ML IV SCH (09:12)
[2024-12-07 10:00] LABS: ABG HCO3 26 mmol/L (22-26); ABG PCO2 43 mmHg (35-45); ABG PH 7.38 (7.35-7.45); ABG PO2 142 mmHg (80-105); ABG TCO2 27
[2024-12-07] MEDS: POTASSIUM CHLORIDE 10MEQ/100ML 200 ML IV ONE (10:33)
[2024-12-07] MEDS: MAGNESIUM SULFATE 2GM/50ML 50 ML IV SCH (10:41)
[2024-12-07] MEDS: METOPROLOL TARTRATE 25 MG TAB PO SCH (11:28)
[2024-12-07] MEDS: AMIODARONE HCL 200 MG TAB PO SCH (16:30)
[2024-12-07] MEDS: IPRATROPIUM BROMIDE 0.02% 2.5 ML NEB NEB SCH (20:02)
[2024-12-07] MEDS: ALBUTEROL SULF 0.083% NEB SOLN 3 ML NEB NEB PRN (20:02)
[2024-12-08] VITALS (36 sets, daily range): BP systolic 102–154; BP diastolic 56–98; PULSE 52–76; RESP 14–25; TEMP 97.9–98.6; O2SAT 90–100
[2024-12-08 06:34] LABS: BASOPHILS % 0.3 % (0.0-1.0); EOSINOPHILS % 0.3 % (0.0-6.0); HEMATOCRIT 26.3 % (38.2-49.6); HEMOGLOBIN 9.1 g/dL (14.0-18.0); LYMPHOCYTES # (AUTO) 0.9 (1.0-3.2); LYMPHOCYTES % 23.7 % (18.0-39.1); MEAN CORPUSCULAR HEMOGLOBIN 31.6 pg (28-32); MEAN CORPUSCULAR HGB CONC 34.6 g/dL (31-35); MEAN CORPUSCULAR VOLUME 91.3 fL (81-99); MONOCYTES # (AUTO) 0.4 (0.2-0.8); MONOCYTES % 10.9 % (4.4-11.3); NEUTROPHILS # (AUTO) 2.5 (2.1-6.9); NEUTROPHILS % 64.3 % (38.7-80.0); PLATELET COUNT 79 x10e3/uL (140-360); RED BLOOD COUNT 2.88 x10e6/uL (4.3-5.7); RED CELL DISTRIBUTION WIDTH 13.4 % (11.7-14.4); WHITE BLOOD COUNT 3.93 x10e3/uL (4.8-10.8)
[2024-12-08 06:58] LABS: ALBUMIN 2.6 g/dL (3.5-5.0); ALBUMIN/GLOBULIN RATIO 1.4 (0.8-2.0); ANION GAP 11.4 mmol/L (8-16); BILIRUBIN,TOTAL 0.4 mg/dL (0.2-1.2); CALCIUM 7.6 mg/dL (8.4-10.2); CREATININE, SERUM 0.54 mg/dL (0.72-1.25); TOTAL PROTEIN 4.5 g/dL (6.5-8.1)
[2024-12-08 07:00] LABS: POTASSIUM 3.4 mmol/L (3.5-5.1)
[2024-12-08] MEDS: POTASSIUM CHLORIDE 20MEQ/100ML 200 ML IV ONE (09:00)
[2024-12-08] MEDS: BISACODYL 10 MG SUPP PR PRN (09:50)
[2024-12-08] MEDS: LINEZOLID 600 MG TAB PO SCH (09:50)
[2024-12-08] MEDS: MAGNESIUM SULFATE 2GM/50ML 50 ML IV ONE (09:50)
[2024-12-09] VITALS (18 sets, daily range): BP systolic 82–129; BP diastolic 53–101; PULSE 59–74; RESP 15–27; TEMP 97.9–98.1; O2SAT 88–100
[2024-12-09 06:35] LABS: HEMATOCRIT 28.9 % (38.2-49.6); HEMOGLOBIN 9.8 g/dL (14.0-18.0); MEAN CORPUSCULAR HEMOGLOBIN 31.2 pg (28-32); MEAN CORPUSCULAR HGB CONC 33.9 g/dL (31-35); PLATELET COUNT 97 x10e3/uL (140-360); RED BLOOD COUNT 3.14 x10e6/uL (4.3-5.7); RED CELL DISTRIBUTION WIDTH 13.1 % (11.7-14.4); WHITE BLOOD COUNT 5.73 x10e3/uL (4.8-10.8)
[2024-12-09 07:19] LABS: ALBUMIN 2.5 g/dL (3.5-5.0); ALBUMIN/GLOBULIN RATIO 1.3 (0.8-2.0); BILIRUBIN,TOTAL 0.7 mg/dL (0.2-1.2); CALCIUM 7.6 mg/dL (8.4-10.2); CREATININE, SERUM 0.54 mg/dL (0.72-1.25); TOTAL PROTEIN 4.4 g/dL (6.5-8.1)
[2024-12-09] MEDS: POLYETHYLENE GLYCOL 3350 17 GM PACK PO PRN (11:09)
[2024-12-09 13:57] LABS: BAND NEUTROPHILS % (MANUAL) 16 %; EOSINOPHILS % (MANUAL) 1 % (0-7); LYMPHOCYTES % (MANUAL) 6 % (19-48); MONOCYTES % (MANUAL) 3 % (3.4-9.0); NEUTROPHILS % (MANUAL) 73 % (40-74); REACTIVE LYMPHOCYTES 1
[2024-12-09 13:58] LABS: PLATELET ESTIMATE SLIGHTLY DECREASED; PLATELET MORPHOLOGY COMMENT NORMAL; RBC MORPHOLOGY COMMENT NORMAL
[2024-12-09] MEDS: MAGNESIUM SULFATE 2GM/50ML 50 ML IV SCH ×2 (17:51→21:31)
[2024-12-10] VITALS (36 sets, daily range): BP systolic 84–139; BP diastolic 53–108; PULSE 42–77; RESP 12–27; TEMP 97–98.4; O2SAT 95–100
[2024-12-10 06:56] LABS: ANION GAP 10.9 mmol/L (8-16); CALCIUM 7.7 mg/dL (8.4-10.2); CREATININE, SERUM 0.56 mg/dL (0.72-1.25); POTASSIUM 3.9 mmol/L (3.5-5.1)
[2024-12-10 08:47] LABS: LYMPHOCYTES % (MANUAL) 8 % (19-48); NEUTROPHILS % (MANUAL) 87 % (40-74)
[2024-12-10 08:48] LABS: MONOCYTES % (MANUAL) 5 % (3.4-9.0)
[2024-12-10] MEDS: METOPROLOL TARTRATE 25 MG TAB PO SCH (09:00)
[2024-12-10] MEDS: AMIODARONE HCL 200 MG TAB PO SCH (09:00)
[2024-12-10 10:49] LABS: BASOPHILS % 0.1 % (0.0-1.0); EOSINOPHILS # (AUTO) 0.1 (0.0-0.4); EOSINOPHILS % 1.3 % (0.0-6.0); HEMATOCRIT 29.3 % (38.2-49.6); LYMPHOCYTES # (AUTO) 0.2 (1.0-3.2); LYMPHOCYTES % 2.1 % (18.0-39.1); MEAN CORPUSCULAR HEMOGLOBIN 31.2 pg (28-32); MEAN CORPUSCULAR HGB CONC 34.1 g/dL (31-35); MEAN CORPUSCULAR VOLUME 91.3 fL (81-99); MONOCYTES # (AUTO) 0.2 (0.2-0.8); MONOCYTES % 2.6 % (4.4-11.3); NEUTROPHILS # (AUTO) 8.2 (2.1-6.9); NEUTROPHILS % 91.8 % (38.7-80.0); PLATELET COUNT 104 x10e3/uL (140-360); RED BLOOD COUNT 3.21 x10e6/uL (4.3-5.7); RED CELL DISTRIBUTION WIDTH 13.2 % (11.7-14.4); WHITE BLOOD COUNT 8.92 x10e3/uL (4.8-10.8)
[2024-12-10 11:08] LABS: ANION GAP 9.9 mmol/L (8-16); CALCIUM 7.8 mg/dL (8.4-10.2); CREATININE, SERUM 0.56 mg/dL (0.72-1.25); POTASSIUM 3.9 mmol/L (3.5-5.1)
[2024-12-10] MEDS: PROPOFOL IV EMULSION 10MG/ML 100 ML IV PRN (15:36)
[2024-12-11] VITALS (55 sets, daily range): BP systolic 76–126; BP diastolic 42–90; PULSE 56–74; RESP 12–26; TEMP 97.9–99; O2SAT 98–100
[2024-12-11 06:46] LABS: BASOPHILS % 0.1 % (0.0-1.0); EOSINOPHILS # (AUTO) 0.1 (0.0-0.4); EOSINOPHILS % 1.7 % (0.0-6.0); HEMATOCRIT 26.6 % (38.2-49.6); HEMOGLOBIN 9.3 g/dL (14.0-18.0); LYMPHOCYTES # (AUTO) 0.3 (1.0-3.2); LYMPHOCYTES % 3.3 % (18.0-39.1); MEAN CORPUSCULAR HEMOGLOBIN 31.3 pg (28-32); MEAN CORPUSCULAR VOLUME 89.6 fL (81-99); MONOCYTES # (AUTO) 0.2 (0.2-0.8); MONOCYTES % 2.5 % (4.4-11.3); NEUTROPHILS # (AUTO) 7.5 (2.1-6.9); NEUTROPHILS % 91.4 % (38.7-80.0); PLATELET COUNT 130 x10e3/uL (140-360); RED BLOOD COUNT 2.97 x10e6/uL (4.3-5.7); RED CELL DISTRIBUTION WIDTH 13.2 % (11.7-14.4); WHITE BLOOD COUNT 8.15 x10e3/uL (4.8-10.8)
[2024-12-11 07:22] LABS: ALBUMIN 2.3 g/dL (3.5-5.0); ANION GAP 14.5 mmol/L (8-16); BILIRUBIN,TOTAL 0.7 mg/dL (0.2-1.2); CALCIUM 7.6 mg/dL (8.4-10.2); CREATININE, SERUM 0.58 mg/dL (0.72-1.25); MAGNESIUM 1.6 MG/DL (1.3-2.1); POTASSIUM 3.5 mmol/L (3.5-5.1); TOTAL PROTEIN 4.5 g/dL (6.5-8.1)
[2024-12-11] MEDS: DOCUSATE SODIUM LIQD 100 MG/10 ML UDC NG SCH (08:37)
[2024-12-11] MEDS: POTASSIUM CHLORIDE 20MEQ/100ML 100 ML IV SCH (08:37)
[2024-12-11] MEDS ORDERED: DOCUSATE SODIUM 100 MG CAP NG SCH (09:00)
[2024-12-11 09:07] LABS: ABG PH 7.46 (7.35-7.45)
[2024-12-11 09:07] LABS: BAND NEUTROPHILS % (MANUAL) 10 %; EOSINOPHILS % (MANUAL) 2 % (0-7); LYMPHOCYTES % (MANUAL) 6 % (19-48); NEUTROPHILS % (MANUAL) 82 % (40-74)
[2024-12-11 09:08] LABS: ABG HCO3 31 mmol/L (22-26); ABG PCO2 43 mmHg (35-45); ABG PO2 125 mmHg (80-105); ABG TCO2 32
[2024-12-11 09:08] LABS: PLATELET ESTIMATE SLIGHTLY DECREASED; PLATELET MORPHOLOGY COMMENT NORMAL; RBC MORPHOLOGY COMMENT NORMAL
[2024-12-11] MEDS: MAGNESIUM SULFATE 2GM/50ML 50 ML IV ONE (12:06)
[2024-12-12] VITALS (19 sets, daily range): BP systolic 83–130; BP diastolic 49–84; PULSE 60–71; RESP 15–25; TEMP 98.2–98.8; O2SAT 98–100
[2024-12-12 06:42] LABS: BASOPHILS % 0.2 % (0.0-1.0); EOSINOPHILS # (AUTO) 0.2 (0.0-0.4); EOSINOPHILS % 1.4 % (0.0-6.0); HEMATOCRIT 26.2 % (38.2-49.6); HEMOGLOBIN 9.2 g/dL (14.0-18.0); LYMPHOCYTES # (AUTO) 0.6 (1.0-3.2); LYMPHOCYTES % 5.2 % (18.0-39.1); MEAN CORPUSCULAR HEMOGLOBIN 31.6 pg (28-32); MEAN CORPUSCULAR HGB CONC 35.1 g/dL (31-35); MONOCYTES # (AUTO) 0.2 (0.2-0.8); MONOCYTES % 2.2 % (4.4-11.3); NEUTROPHILS # (AUTO) 9.7 (2.1-6.9); PLATELET COUNT 138 x10e3/uL (140-360); RED BLOOD COUNT 2.91 x10e6/uL (4.3-5.7); RED CELL DISTRIBUTION WIDTH 13.6 % (11.7-14.4); WHITE BLOOD COUNT 10.81 x10e3/uL (4.8-10.8)
[2024-12-12 07:04] LABS: ALBUMIN 2.1 g/dL (3.5-5.0); ANION GAP 9.5 mmol/L (8-16); BILIRUBIN,TOTAL 0.6 mg/dL (0.2-1.2); CALCIUM 7.5 mg/dL (8.4-10.2); CREATININE, SERUM 0.59 mg/dL (0.72-1.25); POTASSIUM 3.5 mmol/L (3.5-5.1); TOTAL PROTEIN 4.3 g/dL (6.5-8.1)
[2024-12-12] MEDS: POTASSIUM CHLORIDE 20MEQ/100ML 100 ML IV SCH (08:10)
[2024-12-12 08:20] LABS: ABG HCO3 31 mmol/L (22-26); ABG PCO2 39 mmHg (35-45); ABG PH 7.51 (7.35-7.45); ABG PO2 135 mmHg (80-105); ABG TCO2 33
[2024-12-12] MEDS: ENOXAPARIN SOD INJ 60 MG/0.6 ML SYR SC SCH (09:12)
[2024-12-12 10:26] LABS: EOSINOPHILS % (MANUAL) 2 % (0-7); LYMPHOCYTES % (MANUAL) 5 % (19-48); MONOCYTES % (MANUAL) 3 % (3.4-9.0); NEUTROPHILS % (MANUAL) 90 % (40-74); PLATELET ESTIMATE SLIGHTLY DECREASED; PLATELET MORPHOLOGY COMMENT NORMAL; RBC MORPHOLOGY COMMENT NORMAL
[2024-12-12 12:25] LABS: ABG HCO3 35 mmol/L (22-26); ABG PCO2 58 mmHg (35-45); ABG PH 7.39 (7.35-7.45); ABG PO2 20 mmHg (80-105); ABG TCO2 37
[2024-12-12 12:25] LABS: ABG HCO3 26 mmol/L (22-26); ABG PCO2 43 mmHg (35-45); ABG PH 7.38 (7.35-7.45); ABG PO2 142 mmHg (80-105); ABG TCO2 27
[2024-12-12 12:25] LABS: ABG HCO3 22 mmol/L (22-26); ABG PCO2 53 mmHg (35-45); ABG PH 7.22 (7.35-7.45); ABG PO2 294 mmHg (80-105); ABG TCO2 23
[2024-12-12 12:25] LABS: ABG HCO3 31 mmol/L (22-26); ABG PCO2 43 mmHg (35-45); ABG PH 7.46 (7.35-7.45); ABG PO2 125 mmHg (80-105); ABG TCO2 32
[2024-12-12] MEDS: MAGNESIUM SULFATE 2GM/50ML 50 ML IV SCH (15:38)
[2024-12-12] MEDS: MELATONIN 3 MG TAB PO PRN (20:45)
[2024-12-13] VITALS (29 sets, daily range): BP systolic 73–138; BP diastolic 48–76; PULSE 59–75; RESP 14–30; TEMP 97.9–98.2; O2SAT 98–100
[2024-12-13 06:24] LABS: BASOPHILS % 0.1 % (0.0-1.0); EOSINOPHILS # (AUTO) 0.2 (0.0-0.4); EOSINOPHILS % 1.5 % (0.0-6.0); HEMATOCRIT 26.6 % (38.2-49.6); HEMOGLOBIN 9.1 g/dL (14.0-18.0); LYMPHOCYTES # (AUTO) 0.9 (1.0-3.2); LYMPHOCYTES % 8.6 % (18.0-39.1); MEAN CORPUSCULAR HEMOGLOBIN 31.2 pg (28-32); MEAN CORPUSCULAR HGB CONC 34.2 g/dL (31-35); MEAN CORPUSCULAR VOLUME 91.1 fL (81-99); MONOCYTES # (AUTO) 0.3 (0.2-0.8); MONOCYTES % 3.2 % (4.4-11.3); NEUTROPHILS # (AUTO) 8.7 (2.1-6.9); NEUTROPHILS % 85.6 % (38.7-80.0); PLATELET COUNT 131 x10e3/uL (140-360); RED BLOOD COUNT 2.92 x10e6/uL (4.3-5.7); RED CELL DISTRIBUTION WIDTH 13.8 % (11.7-14.4); WHITE BLOOD COUNT 10.19 x10e3/uL (4.8-10.8)
[2024-12-13 06:49] LABS: ALBUMIN/GLOBULIN RATIO 0.9 (0.8-2.0); ANION GAP 8.7 mmol/L (8-16); BILIRUBIN,TOTAL 0.5 mg/dL (0.2-1.2); CALCIUM 7.7 mg/dL (8.4-10.2); CREATININE, SERUM 0.51 mg/dL (0.72-1.25); POTASSIUM 3.7 mmol/L (3.5-5.1); TOTAL PROTEIN 4.3 g/dL (6.5-8.1)
[2024-12-13] MEDS: POTASSIUM CHLORIDE 20MEQ/100ML 200 ML IV ONE (08:09)
[2024-12-13 08:27] LABS: ABG HCO3 31 mmol/L (22-26); ABG PCO2 44 mmHg (35-45); ABG PH 7.46 (7.35-7.45); ABG PO2 108 mmHg (80-105); ABG TCO2 32
[2024-12-13] MEDS: EPINEPHRINE 2.25% INH NEBU SOL 0.5 ML VIAL INH ONE (09:09)
[2024-12-13 10:29] LABS: LYMPHOCYTES % (MANUAL) 4 % (19-48); MONOCYTES % (MANUAL) 2 % (3.4-9.0); NEUTROPHILS % (MANUAL) 94 % (40-74); PLATELET ESTIMATE SLIGHTLY DECREASED; PLATELET MORPHOLOGY COMMENT NORMAL; RBC MORPHOLOGY COMMENT NORMAL
[2024-12-13 10:49] LABS: ABG HCO3 31 mmol/L (22-26); ABG PCO2 48 mmHg (35-45); ABG PH 7.42 (7.35-7.45); ABG PO2 118 mmHg (80-105); ABG TCO2 32
[2024-12-13] MEDS: MAGNESIUM SULFATE 2GM/50ML 50 ML IV SCH (11:59)
[2024-12-13] MEDS: ALBUMIN 25% 12.5GM 0.25 GM/ML BTL IV ONE (14:20)
[2024-12-13] MEDS: SODIUM CHLORIDE 0.9% 1000ML 1,000 ML IV SCH (15:26)
[2024-12-13] MEDS: VASOPRESSIN 60 UNIT in DEXTROSE 5% 50ML 57 ML IV SCH (19:15)
[2024-12-14] VITALS (42 sets, daily range): BP systolic 57–132; BP diastolic 37–89; PULSE 7–68; RESP 10–27; TEMP 97.6–98; O2SAT 98–100
[2024-12-14 06:47] LABS: BASOPHILS % 0.1 % (0.0-1.0); EOSINOPHILS # (AUTO) 0.1 (0.0-0.4); EOSINOPHILS % 0.6 % (0.0-6.0); HEMATOCRIT 27.4 % (38.2-49.6); HEMOGLOBIN 9.2 g/dL (14.0-18.0); LYMPHOCYTES # (AUTO) 1.2 (1.0-3.2); LYMPHOCYTES % 11.9 % (18.0-39.1); MEAN CORPUSCULAR HEMOGLOBIN 31.1 pg (28-32); MEAN CORPUSCULAR HGB CONC 33.6 g/dL (31-35); MEAN CORPUSCULAR VOLUME 92.6 fL (81-99); MONOCYTES # (AUTO) 0.6 (0.2-0.8); MONOCYTES % 5.4 % (4.4-11.3); NEUTROPHILS # (AUTO) 8.3 (2.1-6.9); NEUTROPHILS % 81.5 % (38.7-80.0); PLATELET COUNT 110 x10e3/uL (140-360); RED BLOOD COUNT 2.96 x10e6/uL (4.3-5.7); WHITE BLOOD COUNT 10.19 x10e3/uL (4.8-10.8)
[2024-12-14 07:15] LABS: ALBUMIN 2.2 g/dL (3.5-5.0); ALBUMIN/GLOBULIN RATIO 0.8 (0.8-2.0); ANION GAP 15.3 mmol/L (8-16); BILIRUBIN,TOTAL 0.9 mg/dL (0.2-1.2); CALCIUM 7.7 mg/dL (8.4-10.2); CREATININE, SERUM 0.52 mg/dL (0.72-1.25); POTASSIUM 4.3 mmol/L (3.5-5.1); TOTAL PROTEIN 4.8 g/dL (6.5-8.1)
[2024-12-14] MEDS: DEXTROSE 5%/0.9% SOD CHL 1,000 ML IV ONE (07:35)
[2024-12-14 07:56] LABS: BAND NEUTROPHILS % (MANUAL) 3 %; HYPOCHROMASIA MODERATE; LYMPHOCYTES % (MANUAL) 7 % (19-48); MONOCYTES % (MANUAL) 1 % (3.4-9.0); NEUTROPHILS % (MANUAL) 86 % (40-74); PLATELET ESTIMATE SLIGHTLY DECREASED; PLATELET MORPHOLOGY COMMENT NORMAL; RBC MORPHOLOGY COMMENT NORMAL; REACTIVE LYMPHOCYTES 3
[2024-12-14 08:06] LABS: ABG PCO2 45 mmHg (35-45); ABG PH 7.35 (7.35-7.45); ABG PO2 130 mmHg (80-105)
[2024-12-14 08:07] LABS: ABG HCO3 25 mmol/L (22-26); ABG TCO2 27
[2024-12-14] MEDS: ALBUMIN 25% 12.5GM 0.25 GM/ML BTL IV ONE (18:37)
[2024-12-14] MEDS: DEXTROSE 5%/0.9% SOD CHL 0 ML IV ONE (21:27)
[2024-12-15] VITALS (67 sets, daily range): BP systolic 71–172; BP diastolic 42–112; PULSE 33–109; RESP 16–30; TEMP 97.9–98.8; O2SAT 94–100
[2024-12-15] MEDS: LACTATED RINGER'S 1,000 ML INJ ONE ×2 (00:09→01:27)
[2024-12-15] MEDS: NOREPINEPHRINE 8 MG/D5W 250 ML 250 ML IV PRN (02:02)
[2024-12-15 06:37] LABS: BASOPHILS % 0.2 % (0.0-1.0); HEMATOCRIT 25.2 % (38.2-49.6); HEMOGLOBIN 8.4 g/dL (14.0-18.0); LYMPHOCYTES # (AUTO) 1.4 (1.0-3.2); LYMPHOCYTES % 12.3 % (18.0-39.1); MEAN CORPUSCULAR HEMOGLOBIN 31.2 pg (28-32); MEAN CORPUSCULAR HGB CONC 33.3 g/dL (31-35); MEAN CORPUSCULAR VOLUME 93.7 fL (81-99); MONOCYTES # (AUTO) 0.6 (0.2-0.8); MONOCYTES % 5.6 % (4.4-11.3); NEUTROPHILS # (AUTO) 9.2 (2.1-6.9); NEUTROPHILS % 81.5 % (38.7-80.0); PLATELET COUNT 118 x10e3/uL (140-360); RED BLOOD COUNT 2.69 x10e6/uL (4.3-5.7); RED CELL DISTRIBUTION WIDTH 13.8 % (11.7-14.4); WHITE BLOOD COUNT 11.33 x10e3/uL (4.8-10.8)
[2024-12-15 07:19] LABS: ALBUMIN 2.4 g/dL (3.5-5.0); ANION GAP 11.4 mmol/L (8-16); BILIRUBIN,TOTAL 0.7 mg/dL (0.2-1.2); CALCIUM 7.9 mg/dL (8.4-10.2); CREATININE, SERUM 0.61 mg/dL (0.72-1.25); POTASSIUM 4.4 mmol/L (3.5-5.1); TOTAL PROTEIN 4.8 g/dL (6.5-8.1)
[2024-12-15 10:13] LABS: ABG HCO3 33 mmol/L (22-26); ABG PCO2 63 mmHg (35-45); ABG PH 7.33 (7.35-7.45); ABG PO2 116 mmHg (80-105); ABG TCO2 35
[2024-12-15] MEDS: MIDODRINE HCL 5 MG TABLET PO SCH (11:56)
[2024-12-16] VITALS (79 sets, daily range): BP systolic 75–143; BP diastolic 42–84; PULSE 50–78; RESP 10–23; TEMP 97.5–97.9; O2SAT 69–100
[2024-12-16 06:38] LABS: BASOPHILS % 0.3 % (0.0-1.0); EOSINOPHILS % 0.1 % (0.0-6.0); HEMATOCRIT 23.4 % (38.2-49.6); LYMPHOCYTES % 29.2 % (18.0-39.1); MEAN CORPUSCULAR HGB CONC 32.1 g/dL (31-35); MEAN CORPUSCULAR VOLUME 96.7 fL (81-99); MONOCYTES # (AUTO) 0.4 (0.2-0.8); NEUTROPHILS # (AUTO) 4.4 (2.1-6.9); NEUTROPHILS % 63.8 % (38.7-80.0); PLATELET COUNT 114 x10e3/uL (140-360); RED BLOOD COUNT 2.42 x10e6/uL (4.3-5.7); WHITE BLOOD COUNT 6.88 x10e3/uL (4.8-10.8)
[2024-12-16 06:43] LABS: HEMOGLOBIN 7.5 g/dL (14.0-18.0)
[2024-12-16 06:53] LABS: ALBUMIN 2.2 g/dL (3.5-5.0); ALBUMIN/GLOBULIN RATIO 0.8 (0.8-2.0); ANION GAP 10.6 mmol/L (8-16); BILIRUBIN,TOTAL 0.4 mg/dL (0.2-1.2); CALCIUM 8.2 mg/dL (8.4-10.2); CREATININE, SERUM 0.58 mg/dL (0.72-1.25); POTASSIUM 4.6 mmol/L (3.5-5.1); TOTAL PROTEIN 4.8 g/dL (6.5-8.1)
[2024-12-16 11:21] LABS: BAND NEUTROPHILS % (MANUAL) 13 %; LYMPHOCYTES % (MANUAL) 22 % (19-48); MONOCYTES % (MANUAL) 5 % (3.4-9.0); NEUTROPHILS % (MANUAL) 60 % (40-74)
[2024-12-16 11:22] LABS: PLATELET ESTIMATE SLIGHTLY DECREASED; PLATELET MORPHOLOGY COMMENT NORMAL; RBC MORPHOLOGY COMMENT NORMAL
[2024-12-16] MEDS: ALBUMIN 5% 0.05 GM/ML BTL IV ONE (13:36)
[2024-12-16] MEDS ORDERED: MEROPENEM 1 GM in SODIUM CHLORIDE 0.9% 100 ML IV SCH (15:00)
[2024-12-16] MEDS ORDERED: Vancomycin IV 1 GM in SODIUM CHLORIDE 0.9% 250ML 250 ML IV ONE (15:30)
[2024-12-17] VITALS (39 sets, daily range): BP systolic 73–127; BP diastolic 44–67; PULSE 64–87; RESP 17–26; TEMP 97.8–99.6; O2SAT 92–100
[2024-12-17 06:41] LABS: ABG HCO3 26 mmol/L (22-26); ABG PCO2 46 mmHg (35-45); ABG PH 7.36 (7.35-7.45); ABG PO2 130 mmHg (80-105); ABG TCO2 27
[2024-12-17 06:41] LABS: ABG HCO3 31 mmol/L (22-26); ABG PCO2 63 mmHg (35-45); ABG PO2 40 mmHg (80-105); ABG TCO2 33
[2024-12-17 06:41] LABS: ABG HCO3 34 mmol/L (22-26); ABG PCO2 59 mmHg (35-45); ABG PH 7.37 (7.35-7.45); ABG PO2 43 mmHg (80-105); ABG TCO2 36
[2024-12-17 06:41] LABS: ABG HCO3 33 mmol/L (22-26); ABG PCO2 63 mmHg (35-45); ABG PH 7.33 (7.35-7.45); ABG PO2 116 mmHg (80-105); ABG TCO2 35
[2024-12-17 06:42] LABS: ABG HCO3 31 mmol/L (22-26); ABG PCO2 39 mmHg (35-45); ABG PH 7.51 (7.35-7.45); ABG PO2 135 mmHg (80-105); ABG TCO2 33
[2024-12-17 06:42] LABS: ABG HCO3 31 mmol/L (22-26); ABG PCO2 48 mmHg (35-45); ABG PH 7.42 (7.35-7.45); ABG PO2 118 mmHg (80-105); ABG TCO2 32
[2024-12-17 06:42] LABS: ABG HCO3 31 mmol/L (22-26); ABG PCO2 44 mmHg (35-45); ABG PH 7.46 (7.35-7.45); ABG PO2 108 mmHg (80-105); ABG TCO2 32
[2024-12-17 07:00] LABS: BASOPHILS # (AUTO) 0.1 (0.0-0.1); BASOPHILS % 0.3 % (0.0-1.0); HEMATOCRIT 27.9 % (38.2-49.6); HEMOGLOBIN 8.4 g/dL (14.0-18.0); LYMPHOCYTES # (AUTO) 2.4 (1.0-3.2); MEAN CORPUSCULAR HEMOGLOBIN 31.3 pg (28-32); MEAN CORPUSCULAR HGB CONC 30.1 g/dL (31-35); MEAN CORPUSCULAR VOLUME 104.1 fL (81-99); MONOCYTES # (AUTO) 1.9 (0.2-0.8); MONOCYTES % 7.8 % (4.4-11.3); NEUTROPHILS # (AUTO) 19.3 (2.1-6.9); NEUTROPHILS % 80.9 % (38.7-80.0); PLATELET COUNT 196 x10e3/uL (140-360); RED BLOOD COUNT 2.68 x10e6/uL (4.3-5.7); RED CELL DISTRIBUTION WIDTH 14.2 % (11.7-14.4); WHITE BLOOD COUNT 23.83 x10e3/uL (4.8-10.8)
[2024-12-17 07:25] LABS: ALBUMIN 2.9 g/dL (3.5-5.0); ALBUMIN/GLOBULIN RATIO 1.1 (0.8-2.0); ANION GAP 14.1 mmol/L (8-16); BILIRUBIN,TOTAL 0.3 mg/dL (0.2-1.2); CALCIUM 7.9 mg/dL (8.4-10.2); CREATININE, SERUM 1.09 mg/dL (0.72-1.25); TOTAL PROTEIN 5.6 g/dL (6.5-8.1)
[2024-12-17 07:38] LABS: POTASSIUM 6.1 mmol/L (3.5-5.1)
[2024-12-17] MEDS: Vancomycin IV 1 GM in SODIUM CHLORIDE 0.9% 250ML 250 ML IV ONE (08:10)
[2024-12-17] MEDS: ENOXAPARIN SOD INJ 60 MG/0.6 ML SYR SC SCH (08:13)
[2024-12-17] MEDS: SODIUM CHLORIDE 0.9% 500ML 500 ML IV ONE ×2 (08:26)
[2024-12-17 09:25] LABS: BAND NEUTROPHILS % (MANUAL) 4 %; LYMPHOCYTES % (MANUAL) 7 % (19-48); METAMYELOCYTES % (MANUAL) 2 % (0-0); MONOCYTES % (MANUAL) 7 % (3.4-9.0); MYELOCYTES % (MANUAL) 1 % (0-0); NEUTROPHILS % (MANUAL) 79 % (40-74); PLATELET ESTIMATE ADEQUATE; PLATELET MORPHOLOGY COMMENT NORMAL
== END 2024-12-17 13:51 | disposition hospice, inpatient (51) | DRG 871 ==
LOC: ER 11:21 → ERHOLD 13:15 → ICU 18:34
PROVIDERS: ADMIT Internal Medicine; ATTEND Internal Medicine
PROC: 05HY33Z Insertion of Infusion Device into Upper Vein, Percutaneous Approach (ICD-10-PCS; 2024-12-05)
PROC: 3E0333Z Introduction of Anti-inflammatory into Peripheral Vein, Percutaneous Approach (ICD-10-PCS; 2024-12-05)
PROC: 5A0935A Assistance with Respiratory Ventilation, Less than 24 Consecutive Hours, High Flow/Velocity Cannula (ICD-10-PCS; 2024-12-07)
PROC: 5A09357 Assistance with Respiratory Ventilation, Less than 24 Consecutive Hours, Continuous Positive Airway Pressure (ICD-10-PCS; 2024-12-07)
PROC: 02HV33Z Insertion of Infusion Device into Superior Vena Cava, Percutaneous Approach (ICD-10-PCS; 2024-12-09)
PROC: 0BH17EZ Insertion of Endotracheal Airway into Trachea, Via Natural or Artificial Opening (ICD-10-PCS; 2024-12-10)
PROC: 5A1945Z Respiratory Ventilation, 24-96 Consecutive Hours (ICD-10-PCS; 2024-12-10)
PROC: 3E043XZ Introduction of Vasopressor into Central Vein, Percutaneous Approach (ICD-10-PCS; 2024-12-13)
PROC: 5A09457 Assistance with Respiratory Ventilation, 24-96 Consecutive Hours, Continuous Positive Airway Pressure (ICD-10-PCS; 2024-12-13)
PROC: 4A133R1 Monitoring of Arterial Saturation, Peripheral, Percutaneous Approach (ICD-10-PCS; principal; 2024-12-14)
DX: A41.9 Sepsis, unspecified organism (principal); G82.52 Quadriplegia, C1-C4 incomplete; J96.22 Acute and chronic respiratory failure with hypercapnia; J15.1 Pneumonia due to Pseudomonas; R65.21 Severe sepsis with septic shock; J96.01 Acute respiratory failure with hypoxia; G82.54 Quadriplegia, C5-C7 incomplete; G93.41 Metabolic encephalopathy; J15.8 Pneumonia due to other specified bacteria; J10.08 Influenza due to other identified influenza virus with other specified pneumonia; E87.20 Acidosis, unspecified; R64 Cachexia; D61.818 Other pancytopenia; E44.0 Moderate protein-calorie malnutrition; N30.00 Acute cystitis without hematuria; Z16.24 Resistance to multiple antibiotics; Z68.1 Body mass index [BMI] 19.9 or less, adult; Z11.52 Encounter for screening for COVID-19; Z66 Do not resuscitate; Z51.5 Encounter for palliative care; R65.20 Severe sepsis without septic shock; S14.159S Other incomplete lesion at unspecified level of cervical spinal cord, sequela; Z99.81 Dependence on supplemental oxygen; E87.6 Hypokalemia; E83.42 Hypomagnesemia; I48.0 Paroxysmal atrial fibrillation; N31.9 Neuromuscular dysfunction of bladder, unspecified; N20.0 Calculus of kidney; K21.9 Gastro-esophageal reflux disease without esophagitis; Z99.3 Dependence on wheelchair; Z93.6 Other artificial openings of urinary tract status; Z87.891 Personal history of nicotine dependence
CPT/HCPCS: 36415; 36569; 36600; 71045; 74018; 76700; 80048; 80053; 81001; 82607; 82728; 82746; 82805; 82948; 83540; 83605; 83735; 84443; 84466; 84484; 85007; 85014; 85018; 85025; 85027; 85045; 85610; 85730; 87040; 87086; 87186; 93005; 93306; 94002; 94003; 94640; 94660; 94667; 94668; 94669; 94799; 99252; 99285; J0330; J0692; J0696; J1650; J2185; J2543; J3475; J3480; J7030; J7040; J7042; J7050; J7799

== ENCOUNTER 2024-12-17 14:33 | Inpatient (IN) | payer OTHER ==
[~2024-12-17 14:33] MED LIST changes: -DEXTROSE 50% SYRINGE 50 ML IV ONE; -ETOMIDATE 2 MG/ML 10 ML INJ IV ONE; -SUCCINYLCHOLINE CHLORIDE 20 MG/ML 10ML VIAL ONE; +sodium; +vitamin d
[2024-12-17] MEDS ORDERED: SCOPOLAMINE 1 MG PATCH TOP PRN (14:45)
[2024-12-17] MEDS ORDERED: LORAZEPAM INJ 2 MG/ML VIAL IV PRN (14:45)
[2024-12-17 14:55] VITALS: PULSE 78; RESP 23; O2SAT 95
[2024-12-17] MEDS: Morphine 4mg INJECTION 4 MG/ML INJ IV PRN (15:01)
== END 2024-12-17 18:04 | disposition expired | DRG 951 ==
LOC: ICU 14:33
PROVIDERS: ADMIT Internal Medicine; ATTEND Internal Medicine
DX: Z51.5 Encounter for palliative care (principal); J15.1 Pneumonia due to Pseudomonas; J15.8 Pneumonia due to other specified bacteria; J96.01 Acute respiratory failure with hypoxia; G82.52 Quadriplegia, C1-C4 incomplete; G82.54 Quadriplegia, C5-C7 incomplete; D61.818 Other pancytopenia; N30.00 Acute cystitis without hematuria; Z66 Do not resuscitate; I48.91 Unspecified atrial fibrillation; N31.9 Neuromuscular dysfunction of bladder, unspecified; N20.0 Calculus of kidney; K21.9 Gastro-esophageal reflux disease without esophagitis; S14.154S Other incomplete lesion at C4 level of cervical spinal cord, sequela; S14.155S Other incomplete lesion at C5 level of cervical spinal cord, sequela; S14.156S Other incomplete lesion at C6 level of cervical spinal cord, sequela; Z99.3 Dependence on wheelchair
CPT/HCPCS: 94799; J2270